=== PATIENT | male | born 1945 | race Caucasian/White ===

== ENCOUNTER 2019-05-30 23:28 | Emergency (ER) | payer MEDICARE, MEDICAID, SELFPAY ==
[2019-05-30 23:36] VITALS: BP 132/69; O2SAT 96
[2019-05-30 23:37] VITALS: BP 145/71; PULSE 65; RESP 16; TEMP 37.1; O2SAT 97; BMI 25.7
--- NOTE | 2019-05-30 23:38 | ED_ITS ---
Entered by Debo Earl, acting as scribe for Rebeca Ramírez HPI - Nausea/Vomiting/Diarrhea General: Chief complaint: Nausea/Vomiting/Diarrhea Stated complaint: N/V X3 DAYS Time Seen by Provider: 05/30/19 23:35 Source: patient and EMS Mode of arrival: EMS History of Present Illness: HPI Narrative: 73 y/o male presents to the ED with complaint of N/V for the past 3 days. MD elicited complaint: nausea and vomiting Associated nausea: Yes Associated symtoms: Reports nausea; Denies altered mental status, change in vision, chest pain, diaphoresis, dizziness, dysuria, fatigue, headache(s), malaise, palpitations or syncope Review of Systems General: Reports: other (negative unless marked) Const: Denies: fever, chills, body aches, fatigue, malaise or diaphoresis Eyes: Denies: change in vision or blurry vision ENMT: Denies: throat pain, painful swallowing, hoarseness, ear pain, ear discharge, Change in hearing or nasal discharge Card: Denies: chest pain, palpitations, irregular heart rhythm, syncope, pre- syncope, shortness of breath on exertion or shortness of breath when lying down Resp: Denies: shortness of breath, productive cough, non-productive cough, wheezing, coughing up blood or chest congestion GI: Reports: nausea and vomiting; Denies: vomiting blood, coffee grounds in vomit, constipation, cramping, blood in stool or black tarry stool : Denies: flank pain, difficulty urinating, painful urination, urinary frequency, urinary urgency, decreased urine ouput, urinary incontinence or blood in urine Musc: Denies: neck pain, back pain, extremity pain, extremity swelling, joint pain, joint swelling, joint warmth or joint stiffness Skin/Breast: Denies: rash, skin tenderness or yellow skin Neuro: Denies: headache, numbness in extremities, weakness in extremities, changes in sensation, lack of coordination, difficulty walking, dizziness, vertigo or confusion Endo: Denies: excessive thirst, tired all the time, cold intolerance, excessive sweating, flushing or hot flashes Atif/Lymph: Denies: easy bruising, easy bleeding, petechiae or enlarged lymph nodes All/Imm: Denies: hives, throat swelling, tongue swelling, facial swelling or acute wheezing PFSH ED PFSH: Medical History (Updated 05/28/19 @ 08:40 by Vikram Haley DPM) Acid reflux Diabetes mellitus Gout Surgical History (Updated 05/28/19 @ 08:40 by Vikram Haley DPM) History of appendectomy History of back surgery History of right knee surgery History of shoulder surgery History of surgery on wrist Social History Smoking and tobacco status: never smoked Alcohol intake: former Household members: none Current occupational status: disabled Physical Exam Const: COMMON NORMALS: no apparent distress, oriented x3, no limitations, healthy appearing and well nourished EXAM LIMITATIONS: no altered mental status GENERAL APPEARANCE: cooperative, well kempt and well developed ORIENTATION/CONSCIOUSNESS: Yes awake HENMT: COMMON NORMALS: normocephalic, head/scalp atraumatic, hearing grossly normal bilaterally, external ears normal, EAC's normal, external nose normal and moist oral mucous membranes HEAD & SCALP: normal to inspection, normocephalic and atraumatic FACE & SINUS: normal facial exam and face symmetric NOSE: external nose normal and nares normal EXTERNAL EAR: Yes external ears normal EXTERNAL AUDITORY CANAL: EAC's normal MOUTH: oral and palatal mucosa normal and tongue normal Eye: COMMON NORMALS: PERRL, EOMs intact bilaterally, conjunctivae normal and no scleral icterus GENERAL EYE: normal appearance of both eyes and normal light reflex CONJUNCTIVA: Yes conjunctivae normal SCLERA: sclerae normal CORNEA: Yes corneas normal PUPIL: Yes PERRL DIRECT OPHTHALMOSCOPY: Yes normal light reflex Neck/C-Spine: COMMON NORMALS: full ROM, no lymphadenopathy, supple, no meningeal signs and no JVD GENERAL: Yes normal visual inspection and Yes trachea midline CERVICAL SPINE: Yes cervical ROM normal Chest: COMMONS NORMALS: inspection of chest normal and palpation of chest normal Resp: COMMON NORMALS: normal respiratory effort, no retractions, no use of accessory muscles and clear to auscultation bilaterally EFFORT & INSPECTION: Yes able to speak in complete sentences AUSCULTATION: clear to auscultation bilaterally Cardio: COMMON NORMALS: no JVD, regular rate, regular rhythm, S1 normal heart sound, S2 normal heart sound, no gallops, no clicks, no murmurs and no rub JUGULAR VENOUS DISTENTION: no JVD RATE: regular rate RHYTHM: regular rhythm HEART SOUNDS: S1 normal and S2 normal : COMMON NORMALS: Yes no CVA tenderness BLADDER/KIDNEY EXAM: Yes no CVA tenderness Back/Pelvis: COMMON NORMALS: no CVA tenderness, thoracic and lumbar spine normal to inspection, no thoracic nor lumbar tenderness and thoraco-lumbar ROM normal Extremity: COMMON NORMALS: normal to inspection, full ROM, normal capillary refill, no joint enlargement, no clubbing, cyanosis or edema and no calf tenderness Neuro: COMMON NORMALS: oriented x3, CN's II-XII intact bilaterally, moves all extremities, no focal motor deficits and no sensory deficits noted MENINGEAL SIGNS: Yes no meningeal signs Psych: COMMON NORMALS: mental status grossly normal, thought process normal, cooperative, affect normal, speech normal and activity/motor behavior normal APPEARANCE: Yes well kempt SPEECH: Yes normal speech THOUGHT PROCESS: normal thought process Skin: COMMON NORMALS: no rashes or lesions noted, skin turgor normal, no jaundice, no petechiae and no mottling GENERAL SKIN EXAM: no rashes or lesions noted and turgor normal Course Vital Signs: Vital signs: Vital Signs Temperature 98.8 F 05/30/19 23:37 Pulse Rate 65 05/30/19 23:37 Respiratory Rate 16 05/30/19 23:37 Blood Pressure 145/71 05/30/19 23:37 Pulse Oximetry 97 05/30/19 23:37 Discharge Plan Discharge Prescriptions: No Action omeprazole 20 mg capsule,delayed release(DR/EC) PO RF: 0 prednisolone acetate 1 % drops,suspension 1 drop ophthalmic (eye) RF: 0 ibuprofen 800 mg tablet PO RF: 0 omega-3 acid ethyl esters 1 gram capsule PO RF: 0 gabapentin 300 mg capsule PO RF: 0 ranitidine HCl 300 mg tablet 300 mg PO RF: 0 docusate sodium 100 mg capsule PO RF: 0 cyanocobalamin (vitamin B-12) 1,000 mcg/mL solution 100 mcg IM RF: 0 furosemide 20 mg tablet PO RF: 0 buspirone 30 mg tablet PO RF: 0 acetaminophen-codeine 300-30 mg tablet PO RF: 0 allopurinol 300 mg tablet PO RF: 0 metformin 500 mg tablet PO RF: 0 gabapentin 600 mg tablet 300 mg PO RF: 0 aspirin 81 mg tablet,delayed release (DR/EC) PO RF: 0 spironolactone 25 mg tablet PO RF: 0 famotidine 20 mg tablet 20 mg PO RF: 0 tamsulosin 0.4 mg capsule PO RF: 0 atenolol 50 mg tablet PO RF: 0 loratadine 10 mg tablet PO RF: 0 albuterol sulfate 90 mcg/actuation HFA aerosol inhaler INHALATION RF: 0 doxycycline hyclate 100 mg capsule 100 mg PO BID Qty: 14 RF: 0 mupirocin 2 % ointment 1 applic TOPICAL BID Qty: 30 RF: 0 ondansetron HCl [Zofran] 8 mg tablet 8 mg PO Q8H PRN (Reason: nausea and vomiting) Qty: 30 RF: 0 Coding Level of Care Code ED Pilot Steam Yacht for Chg Fwd Exam Comprehensive
[2019-05-30 23:40] VITALS: BP 132/69; O2SAT 96
[2019-05-30 23:45] VITALS: BP 132/69; O2SAT 95
--- NOTE | 2019-05-30 23:49 | ED_ITS ---
HPI - General Adult General: Chief complaint: Nausea/Vomiting/Diarrhea Stated complaint: N/V X3 DAYS Time Seen by Provider: 05/30/19 23:35 Source: patient and EMS Mode of arrival: EMS History of Present Illness: HPI narrative: Patient complains every time he takes doxycycline he gets sick to his stomach. Has had some nausea and vomiting with it only after taking medication. Been taking for about 3 days for an abscess toe toe is looking better. MD complaint: Medication reaction Onset (ago): day(s) Associated symptoms: Reports nausea (With medication usage) and vomiting; Deny chest pain, dyspnea, headache(s) or rash Review of Systems Const: Denies: fever, chills or body aches Eyes: Denies: change in vision or blurry vision ENMT: Denies: throat pain or nasal congestion Card: Denies: chest pain or shortness of breath on exertion Resp: Denies: shortness of breath, productive cough or non-productive cough GI: Reports: nausea (With medication usage) and vomiting : Denies: difficulty urinating Musc: Denies: extremity pain Skin/Breast: Denies: rash Neuro: Denies: headache Psych: Denies: anxiety or depression Atif/Lymph: Denies: easy bruising PFSH ED PFSH: Medical History (Updated 05/28/19 @ 08:40 by Vikram Haley DPM) Acid reflux Diabetes mellitus Gout Surgical History (Updated 05/28/19 @ 08:40 by Vikram Haley DPM) History of appendectomy History of back surgery History of right knee surgery History of shoulder surgery History of surgery on wrist Social History Smoking and tobacco status: never smoked Alcohol intake: former Household members: none Current occupational status: disabled Physical Exam Const: COMMON NORMALS: no apparent distress, average body habitus and oriented x3 HENMT: COMMON NORMALS: normocephalic HEAD & SCALP: normal to inspection and normocephalic FACE & SINUS: normal facial exam Eye: COMMON NORMALS: conjunctivae normal GENERAL EYE: normal appearance of both eyes CONJUNCTIVA: Yes conjunctivae normal Neck/C-Spine: COMMON NORMALS: no JVD Chest: COMMONS NORMALS: inspection of chest normal Resp: COMMON NORMALS: normal respiratory effort and clear to auscultation bilaterally AUSCULTATION: clear to auscultation bilaterally Cardio: COMMON NORMALS: no JVD, regular rate and regular rhythm RATE: regular rate RHYTHM: regular rhythm GI: COMMON NORMALS: normal to inspection, nondistended, normoactive bowel sounds Extremity: COMMON NORMALS: normal to inspection and full ROM OTHER: Right toe is not appearing to be with erythema presently Neuro: COMMON NORMALS: oriented x3 Course Vital Signs: Vital signs: Vital Signs Temperature 98.8 F 05/30/19 23:37 Pulse Rate 65 05/30/19 23:37 Respiratory Rate 16 05/30/19 23:37 Blood Pressure 145/71 05/30/19 23:37 Pulse Oximetry 97 05/30/19 23:37 Discharge Plan Discharge Prescriptions: No Action omeprazole 20 mg capsule,delayed release(DR/EC) PO RF: 0 prednisolone acetate 1 % drops,suspension 1 drop ophthalmic (eye) RF: 0 ibuprofen 800 mg tablet PO RF: 0 omega-3 acid ethyl esters 1 gram capsule PO RF: 0 gabapentin 300 mg capsule PO RF: 0 ranitidine HCl 300 mg tablet 300 mg PO RF: 0 docusate sodium 100 mg capsule PO RF: 0 cyanocobalamin (vitamin B-12) 1,000 mcg/mL solution 100 mcg IM RF: 0 furosemide 20 mg tablet PO RF: 0 buspirone 30 mg tablet PO RF: 0 acetaminophen-codeine 300-30 mg tablet PO RF: 0 allopurinol 300 mg tablet PO RF: 0 metformin 500 mg tablet PO RF: 0 gabapentin 600 mg tablet 300 mg PO RF: 0 aspirin 81 mg tablet,delayed release (DR/EC) PO RF: 0 spironolactone 25 mg tablet PO RF: 0 famotidine 20 mg tablet 20 mg PO RF: 0 tamsulosin 0.4 mg capsule PO RF: 0 atenolol 50 mg tablet PO RF: 0 loratadine 10 mg tablet PO RF: 0 albuterol sulfate 90 mcg/actuation HFA aerosol inhaler INHALATION RF: 0 doxycycline hyclate 100 mg capsule 100 mg PO BID Qty: 14 RF: 0 mupirocin 2 % ointment 1 applic TOPICAL BID Qty: 30 RF: 0 ondansetron HCl [Zofran] 8 mg tablet 8 mg PO Q8H PRN (Reason: nausea and vomiting) Qty: 30 RF: 0 Coding Level of Care Code ED Veneer Jointer Returner for Chg Fwd
[2019-05-30 23:50] VITALS: BP 132/69; O2SAT 96
[2019-05-30] MEDS: ondansetron 2 mg/ML SDV 2 mL 4 MG IVP (23:51)
[2019-05-30 23:54] LABS: Eosinophils # 0.1 10^3/uL (0.0-0.8); Eosinophils % 1.3 %; Hematocrit 36.4 % (42.0-52.0); Hemoglobin 11.5 g/dL (11.7-16.6); Lymphocytes # 1.7 10^3/uL (0.8-4.8); Lymphocytes % 37.2 %; Mean Corpuscular HGB Conc 31.6 g/dL (30.0-36.0); Mean Corpuscular Hemoglobin 25.7 pg (28.0-34.0); Mean Corpuscular Volume 81.4 fL (80-94); Mean Platelet Volume 10.7 fL (7.4-10.4); Monocytes # 0.4 10^3/uL (0.2-0.9); Monocytes % 7.7 %; Neutrophils # 2.5 10^3/uL (1.8-7.7); Neutrophils % 53.6 %; Nucleated Red Blood Cells % 0 %; Platelet Count 123 10^3/cmm (130-400); Red Blood Count 4.47 10^6/uL (4.1-5.3); Red Cell Distribution Width 14.2 % (12.1-15.1); White Blood Count 4.7 10^3/uL (4.0-10.0)
[2019-05-30 23:55] VITALS: BP 132/69; O2SAT 96
[2019-05-31] VITALS (7 sets, daily range): BP systolic 132; BP diastolic 69; PULSE 72; RESP 16; O2SAT 91–97
--- NOTE | 2019-05-31 00:06 | PC.NURSE ---
Introduced self to patient and initiated vital signs. Patient presents A&O x 4. NAD, ABCs intact, MAEW and agreeable to treatment. Respirations are even and unlabored. Pt states medications taken before coming to ER are doxycycline. Pt states that the chief complaint for the ER visit today is due to abdominal pain and n/v possibly from antibiotic. Pt denies any vision disturbances or lightheadedness. Bed left in lowest position in semi-fowlers with side rails up.Reassured patient of needs and will continue to monitor.
[2019-05-31 00:17] LABS: Alanine Aminotransferase 13 U/L (0-41); Alkaline Phosphatase 79 IU/L (40-130); Aspartate Amino Transferase 16 U/L (0-40); Blood Urea Nitrogen 14 mg/dL (8-23); Calcium 9.9 mg/dL (8.5-10.5); Carbon Dioxide 26 mmol/L (22-29); Chloride 98 mmol/L (98-107); Creatinine Clr Calc Pharmacy 47.7118; Globulin 2.4 g/dL (1.3-4.6); Glucose 131 mg/dL (65-115); Lipase 39 U/L (13-60); Sodium 136 mmol/L (136-145); Total Bilirubin 1.2 mg/dL (0.15-1.2); Total Protein 6.4 g/dL (6.6-8.7)
== END 2019-05-31 00:44 | disposition home or self-care (01) ==
PROVIDERS: Emergency Medicine; Emergency Provider Nurse Practitioner Family; Family Provider Nurse Practitioner Family; PCP Nurse Practitioner Family
DX: R11.2 Nausea with vomiting, unspecified (principal); R19.7 Diarrhea, unspecified; E11.9 Type 2 diabetes mellitus without complications; Z79.84 Long term (current) use of oral hypoglycemic drugs
CPT/HCPCS: 80053; 83690; 85025; 96374; 99282; 99283; A9270; J2405

== ENCOUNTER 2019-06-01 01:32 | Emergency (ER) | payer MEDICARE, MEDICAID, SELFPAY ==
[2019-06-01 01:47] VITALS: BP 160/79; PULSE 74; RESP 16; O2SAT 96; BMI 26.4
--- NOTE | 2019-06-01 02:43 | ED_ITS ---
HPI - General Adult General: Chief complaint: General Medical Stated complaint: NAUSEA,VOMITING Time Seen by Provider: 06/01/19 02:29 History of Present Illness: HPI narrative: Patient arrived via ambulance with complaints of nausea still. Said he did not get the new antibiotic filled he did stop the old antibiotic he has not vomited he is not been running a fever chills has intermittent nausea MD complaint: nausea Onset (ago): day(s) Severity: mild Pain Consistency: intermittent Relieving factors: none Exacerbating factors: medication Associated symptoms: Reports no associated symptoms and nausea (Sporadic associated with taken doxycycline patient states he does feel better than yesterday says he is here because he was told to follow-up if he 1 significantly improved); Deny chest pain, dyspnea, headache(s), rash or vomiting Review of Systems Const: Denies: fever, chills or body aches Eyes: Denies: change in vision or blurry vision ENMT: Denies: throat pain or nasal congestion Card: Denies: chest pain or shortness of breath on exertion Resp: Denies: shortness of breath, productive cough or non-productive cough GI: Reports: nausea (Sporadic associated with taken doxycycline patient states he does feel better than yesterday says he is here because he was told to follow-up if he 1 significantly improved); Denies: abdominal pain or vomiting : Denies: difficulty urinating Musc: Denies: extremity pain Skin/Breast: Denies: rash Neuro: Denies: headache Psych: Denies: anxiety or depression Atif/Lymph: Denies: easy bruising PFS ED PFSH: Medical History (Updated 05/31/19 @ 00:23 by KRISTIE Hermosillo) Acid reflux Diabetes mellitus Gout Surgical History (Updated 05/28/19 @ 08:40 by Vikram Haley DPM) History of appendectomy History of back surgery History of right knee surgery History of shoulder surgery History of surgery on wrist Social History Smoking and tobacco status: never smoked Alcohol intake: former Household members: none Current occupational status: disabled Physical Exam Const: COMMON NORMALS: no apparent distress, average body habitus and oriented x3 HENMT: COMMON NORMALS: normocephalic HEAD & SCALP: normal to inspection and normocephalic FACE & SINUS: normal facial exam Eye: COMMON NORMALS: conjunctivae normal GENERAL EYE: normal appearance of both eyes CONJUNCTIVA: Yes conjunctivae normal Neck/C-Spine: COMMON NORMALS: no JVD Chest: COMMONS NORMALS: inspection of chest normal Resp: COMMON NORMALS: normal respiratory effort and clear to auscultation bilaterally AUSCULTATION: clear to auscultation bilaterally Cardio: COMMON NORMALS: no JVD, regular rate and regular rhythm RATE: regular rate RHYTHM: regular rhythm GI: COMMON NORMALS: normal to inspection, nondistended, normoactive bowel sounds Extremity: COMMON NORMALS: normal to inspection and full ROM Neuro: COMMON NORMALS: oriented x3 Course Vital Signs: Vital signs: Vital Signs Pulse Rate 74 06/01/19 01:47 Respiratory Rate 16 06/01/19 01:47 Blood Pressure 160/79 06/01/19 01:47 Pulse Oximetry 96 06/01/19 01:47 Discharge Plan Discharge Condition: Stable Prescriptions: No Action omeprazole 20 mg capsule,delayed release(DR/EC) PO RF: 0 prednisolone acetate 1 % drops,suspension 1 drop ophthalmic (eye) RF: 0 ibuprofen 800 mg tablet PO RF: 0 omega-3 acid ethyl esters 1 gram capsule PO RF: 0 gabapentin 300 mg capsule PO RF: 0 ranitidine HCl 300 mg tablet 300 mg PO RF: 0 docusate sodium 100 mg capsule PO RF: 0 cyanocobalamin (vitamin B-12) 1,000 mcg/mL solution 100 mcg IM RF: 0 furosemide 20 mg tablet PO RF: 0 buspirone 30 mg tablet PO RF: 0 acetaminophen-codeine 300-30 mg tablet PO RF: 0 allopurinol 300 mg tablet PO RF: 0 metformin 500 mg tablet PO RF: 0 gabapentin 600 mg tablet 300 mg PO RF: 0 aspirin 81 mg tablet,delayed release (DR/EC) PO RF: 0 spironolactone 25 mg tablet PO RF: 0 famotidine 20 mg tablet 20 mg PO RF: 0 tamsulosin 0.4 mg capsule PO RF: 0 atenolol 50 mg tablet PO RF: 0 loratadine 10 mg tablet PO RF: 0 albuterol sulfate 90 mcg/actuation HFA aerosol inhaler INHALATION RF: 0 doxycycline hyclate 100 mg capsule 100 mg PO BID Qty: 14 RF: 0 mupirocin 2 % ointment 1 applic TOPICAL BID Qty: 30 RF: 0 ondansetron HCl [Zofran] 8 mg tablet 8 mg PO Q8H PRN (Reason: nausea and vomiting) Qty: 30 RF: 0 Bactrim 400-80 mg tablet 1 tab PO BID 7 Days Qty: 14 RF: 0 Referrals: Dinora,Kaur, TOWEL HEMMER [Primary Care Provider] - Coding Level of Care Code ED Product Development Engineer for Bernadette Gamez
--- NOTE | 2019-06-01 03:02 | PC.NURSE ---
Patient dc'd home in stable condition via ambulation refusing wheelchair. Discharge papers given and explained to patient with all questions asked and answered.
== END 2019-06-01 03:05 | disposition home or self-care (01) ==
PROVIDERS: Emergency Provider Nurse Practitioner Family; Family Provider Nurse Practitioner Family; PCP Nurse Practitioner Family
DX: R11.2 Nausea with vomiting, unspecified (principal); E11.9 Type 2 diabetes mellitus without complications; Z79.84 Long term (current) use of oral hypoglycemic drugs
CPT/HCPCS: 99281; 99282

== ENCOUNTER 2021-04-09 21:15 | Emergency (ER) | payer MEDICARE, MEDICAID, SELFPAY ==
[2021-04-09 21:27] VITALS: BP 187/83; PULSE 60; RESP 16; TEMP 36.2; O2SAT 96; BMI 26.6
--- NOTE | 2021-04-09 21:29 | CTR_ITS ---
PROCEDURE INFORMATION: Exam: CT Head Without Contrast Exam date and time: 04/09/2021 9:29 PM Age: 75 years old Clinical indication: Injury or trauma; Fall; Blunt trauma (contusions or hematomas); Altered mental status/memory loss TECHNIQUE: Imaging protocol: Computed tomography of the head without contrast. Radiation optimization: All CT scans at this facility use at least one of these dose optimization techniques: automated exposure control; mA and/or kV adjustment per patient size (includes targeted exams where dose is matched to clinical indication); or iterative reconstruction. COMPARISON: CT head wo con* [id number] 02/29/2016 1:45 AM RADIATION DOSE METRICS: Total DLP (mGy-cm): 1688.23 FINDINGS: Brain: No hemorrhage. Advanced diffuse cerebral atrophy with sequela of chronic small ischemic disease. No mass effect. Cerebral ventricles: No ventriculomegaly. Paranasal sinuses: Small mucosal retention cyst in the left maxillary sinus. No fluid levels. Mastoid air cells: Visualized mastoid air cells are well aerated. Bones/joints: Unremarkable. No acute fracture. Soft tissues: Unremarkable. CT/CT head wo con* [id number] IMPRESSION: 1. No acute intracranial abnormality. 2. Advanced diffuse cerebral atrophy with sequela of chronic small vessel ischemic disease.
--- NOTE | 2021-04-09 21:31 | XRR_ITS ---
PROCEDURE INFORMATION: Exam: XR Right Knee Exam date and time: 04/09/2021 9:31 PM Age: 75 years old Clinical indication: Injury or trauma; Fall; Blunt trauma; Prior surgery; Surgery date: 6+ months; Surgery type: Right knee replacement TECHNIQUE: Imaging protocol: XR Right knee. Views: 3 views. COMPARISON: No relevant prior studies available. 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 Alignment is anatomic. There are tug enthesophytes on the distal shaft of the femur and heterotopic bone formation fusing the proximal tibia and fibula.. Normal alignment. No acute fractures. Soft tissues: Normal. XR/XR knee RT 3V* [id number] IMPRESSION: No acute bony injury.
--- NOTE | 2021-04-09 21:31 | W.ED.FALL ---
HPI - Fall General: Chief Complaint: Fall Stated Complaint: FALL FROM BED Time Seen by Provider: 04/09/21 21:21 Source: patient and EMS Mode of arrival: EMS Limitations: no limitations History of Present Illness: HPI Narrative: 75-year-old male states he fell out of bed and woke up on the floor states that he believes he did hit his head as he has a slight headache denies any neck pain he also has right knee pain he states pain is currently a 2 out of 10 denies any severe pain denies any worsening improving factors denies any vomiting. Denies any chest or abdominal pain Associated symptoms-after fall: Denies abdominal pain, chest pain or headache(s) Review of Systems Const: Denies: fever(s), chills, body aches or change in appetite Eyes: Denies: blurry vision or eye discomfort ENMT: Denies: throat pain or dental pain Card: Denies: chest pain Resp: Denies: dyspnea GI: Denies: abdominal pain, nausea, vomiting or diarrhea : Denies: dysuria Musc: Reports: extremity pain Skin/Breast: Denies: rash Neuro: Denies: headache(s) Psych: Denies: depression Atif/Lymph: Denies: easy bruising All/Imm: Denies: urticaria PFSH ED PFSH: Medical History (Updated 04/09/21 @ 22:25 by Jones Pagan MD) Acid reflux Diabetes mellitus Gout Surgical History History of appendectomy History of back surgery History of right knee surgery History of shoulder surgery History of surgery on wrist Family History Other Cancer Diabetes Social History Smoking and tobacco status: never smoked Alcohol intake: former Household members: none Current occupational status: disabled Physical Exam Const: COMMON NORMALS: no acute distress, patient oriented x3 and healthy appearing HENMT: COMMON NORMALS: normocephalic and atraumatic HEAD & SCALP: normocephalic and atraumatic Eye: COMMON NORMALS: Equal, round and reactive pupils present and EOMs intact bilaterally PUPIL: Yes Equal, round and reactive pupils present Neck/C-Spine: COMMON NORMALS: full ROM and supple Chest: COMMONS NORMALS: normal inspection of the chest and normal palpation of entire chest wall Resp: COMMON NORMALS: normal respiratory effort, No retractions, No use of accessory muscles and clear to auscultation bilaterally AUSCULTATION: clear to auscultation bilaterally Cardio: COMMON NORMALS: regular rate, regular rhythm and No murmurs present (Cardio) RATE: regular rate RHYTHM: regular rhythm GI: COMMON NORMALS: Normal to inspection, nondistended, normoactive bowel sounds present, Soft to palpation, non-tender and no masses PALPATION: Yes Soft to palpation Extremity: COMMON NORMALS: normal to inspection NARRATIVE EXTREMITY EXAM: Tenderness over right knee no obvious deformities he has full range of motion in both legs and both hips Neuro: COMMON NORMALS: patient oriented x3, moves all extremities and no focal motor deficits Psych: COMMON NORMALS: mental status grossly normal, Normal thought process present and cooperative THOUGHT PROCESS: Normal thought process present Skin: COMMON NORMALS: no rashes or lesions noted and no wounds GENERAL SKIN EXAM: no rashes or lesions noted Course Vital Signs: Vital signs: Vital Signs Temperature 97.1 F L 04/09/21 21:27 Pulse Rate 60 04/09/21 21:27 Respiratory Rate 16 04/09/21 21:27 Blood Pressure 187/83 04/09/21 21:27 Pulse Oximetry 96 04/09/21 21:27 MDM - Fall MDM Narrative: Medical decision making narrative: Patient presents with closed head injury along with knee pain after fall he has been ambulatory here in the halls with no pain head CT here is normal he had no neck pain no other injuries noted he is stable for discharge is to follow-up PCP and return if worsening. Discharge Plan Discharge Patient Disposition: Home Clinical Impression: Fall Qualifiers: Encounter type: initial encounter Qualified Code(s): W19.XXXA - Unspecified fall, initial encounter CHI (closed head injury) Qualifiers: Encounter type: initial encounter Qualified Code(s): S09.90XA - Unspecified injury of head, initial encounter Condition: Stable Prescriptions: No Action omeprazole 20 mg capsule,delayed release(DR/EC) PO RF: 0 prednisolone acetate 1 % drops,suspension 1 drop ophthalmic (eye) RF: 0 ibuprofen 800 mg tablet PO RF: 0 omega-3 acid ethyl esters 1 gram capsule PO RF: 0 gabapentin 300 mg capsule PO RF: 0 ranitidine HCl 300 mg tablet 300 mg PO RF: 0 docusate sodium 100 mg capsule PO RF: 0 cyanocobalamin (vitamin B-12) 1,000 mcg/mL solution 100 mcg IM RF: 0 furosemide 20 mg tablet PO RF: 0 buspirone 30 mg tablet PO RF: 0 acetaminophen-codeine 300-30 mg tablet PO RF: 0 allopurinol 300 mg tablet PO RF: 0 metformin 500 mg tablet PO RF: 0 gabapentin 600 mg tablet 300 mg PO RF: 0 aspirin 81 mg tablet,delayed release (DR/EC) PO RF: 0 spironolactone 25 mg tablet PO RF: 0 famotidine 20 mg tablet 20 mg PO RF: 0 tamsulosin 0.4 mg capsule PO RF: 0 atenolol 50 mg tablet PO RF: 0 loratadine 10 mg tablet PO RF: 0 albuterol sulfate 90 mcg/actuation HFA aerosol inhaler INHALATION RF: 0 doxycycline hyclate 100 mg capsule 100 mg PO BID Qty: 14 RF: 0 mupirocin 2 % ointment 1 applic TOPICAL BID Qty: 30 RF: 0 ondansetron HCl [Zofran] 8 mg tablet 8 mg PO Q8H PRN (Reason: nausea and vomiting) Qty: 30 RF: 0 Reglan 5 mg tablet 5 mg PO DAILY Qty: 10 RF: 0 Discharge Orders: Discharge ED (Routine); Ordered 04/09/21 Ordered By: Jones Pagan Referrals: Kaur,KIKO FariasN [Primary Care Provider] - 1-3 days Discharge Diet: Advance as tolerated Discharge Activity: Resume usual activity Patient Instructions: Head Injury (ED), Fall Prevention (ED) Coding Level of Care Code ED Forest Pathology Teacher for Bernadette Fwd Exam Comprehensive
[2021-04-09 22:38] VITALS: BP 154/86; PULSE 63; RESP 16; TEMP 36.2; O2SAT 97
== END 2021-04-09 22:39 | disposition home or self-care (01) ==
PROVIDERS: Emergency Provider Emergency Medicine; PCP Nurse Practitioner Family
DX: S09.90XA Unspecified injury of head, initial encounter (principal); W06.XXXA Fall from bed, initial encounter; E11.9 Type 2 diabetes mellitus without complications; M10.9 Gout, unspecified; Z79.84 Long term (current) use of oral hypoglycemic drugs; Z79.82 Long term (current) use of aspirin
CPT/HCPCS: 70450; 73562; 99283

== ENCOUNTER 2021-05-10 13:20 | Outpatient (CLI) | payer MEDICARE, MEDICAID, SELFPAY | END 2021-05-10 13:21 | disposition home or self-care (01) | LOC: WOUND 13:22 | PROVIDERS: PCP Nurse Practitioner Family; Visit Provider Emergency Medicine | DX: I96 Gangrene, not elsewhere classified (principal); E11.622 Type 2 diabetes mellitus with other skin ulcer; L97.816 Non-pressure chronic ulcer of other part of right lower leg with bone involvement without evidence of necrosis | CPT/HCPCS: 11043; 87070; 87176; 87205; 99213; A6219; A6446 ==

== ENCOUNTER 2021-05-13 13:22 | Outpatient (CLI) | payer MEDICARE, MEDICAID, SELFPAY | END 2021-05-13 13:23 | disposition home or self-care (01) | LOC: WOUND 13:23 | PROVIDERS: PCP Nurse Practitioner Family; Visit Provider Surgery | DX: I96 Gangrene, not elsewhere classified (principal); E11.622 Type 2 diabetes mellitus with other skin ulcer; L97.815 Non-pressure chronic ulcer of other part of right lower leg with muscle involvement without evidence of necrosis | CPT/HCPCS: 11043 ==

== ENCOUNTER 2021-05-20 14:13 | Outpatient (CLI) | payer MEDICARE, MEDICAID, SELFPAY | END 2021-05-20 14:14 | disposition home or self-care (01) | LOC: WOUND 14:14 | PROVIDERS: PCP Nurse Practitioner Family; Visit Provider Surgery | DX: I96 Gangrene, not elsewhere classified (principal); E11.622 Type 2 diabetes mellitus with other skin ulcer; L97.802 Non-pressure chronic ulcer of other part of unspecified lower leg with fat layer exposed | CPT/HCPCS: 99213 ==

== ENCOUNTER 2021-06-03 12:48 | Emergency (ER) | payer MEDICARE, MEDICAID, SELFPAY ==
[2021-06-03 12:56] VITALS: BP 161/75; PULSE 58; RESP 16; TEMP 36.7; O2SAT 97; BMI 24.3
--- NOTE | 2021-06-03 13:21 | W.ED.EXTPRO ---
Documented by User: TESHA Fang 06/04/21 07:29 HPI - Extremity Problem General: Chief complaint: Extremity Problem,Nontraumatic Stated complaint: INFECTION IN LEG Time Seen by Provider: 06/03/21 13:05 Source: patient Mode of arrival: ambulatory Limitations: no limitations History of Present Illness: Patient is a 75-year-old male who presents to ED today for evaluation of his right lower extremity chronic wound/ulcer. Patient states he struck the anterior portion of his right cooney approximately 3 months ago and subsequently developed an ulceration here. Patient had been following up routinely with wound care however became dissatisfied with Dr. Kemp when he recommended OR debridement of the wound. Wound care note states that patient left AMA and he has not returned to wound care since mid May. Patient tells me he has chronic redness and swelling to the lower right aspect of his leg. He states the ulcer is not worsening in any way-just does not appear to be healing. He is not having any drainage or odor. Patient states he is here in the ED wanting a prescription for more antibiotics . After speaking to patient further he states he just finished a round of antibiotics. He tells me he has been on 5 or 6 rounds of antibiotics over the past few months but none of them seem to be helping . When asked why he stopped going to wound care and why he was dissatisfied with their care he states I don't trust anyone at his hospital and I am certainly not having surgery here . Complaint: extremity swelling Radiation: none Relieving factors: nothing Exacerbating factors: nothing Associated symptoms: Reports no associated symptoms; Deny chest pain or fever(s) Review of Systems Const: Denies: fever(s), chills, body aches, fatigue or malaise Card: Denies: chest pain Resp: Denies: dyspnea GI: Denies: nausea or vomiting Musc: Reports: extremity swelling (R LE); Denies: neck pain, joint pain or joint swelling Skin/Breast: Reports: other (chronic anterior R LE ulcer) Neuro: Denies: numbness in extremities, weakness in extremities or sensory changes [facility] ED PFSH: Medical History (Updated 06/11/21 @ 00:00 by ) Acid reflux Diabetes mellitus Gout Surgical History History of appendectomy History of back surgery History of right knee surgery History of shoulder surgery History of surgery on wrist Family History Other Cancer Diabetes Social History Smoking and tobacco status: never smoked Alcohol intake: former Household members: none Current occupational status: disabled Physical Exam Const: COMMON NORMALS: no acute distress, patient oriented x3, no limitations and alert GENERAL APPEARANCE: cooperative and disheveled ORIENTATION/CONSCIOUSNESS: Yes awake, Yes oriented to person, Yes oriented to place and Yes oriented to time HENMT: COMMON NORMALS: normocephalic and atraumatic HEAD & SCALP: normocephalic and atraumatic Resp: COMMON NORMALS: normal respiratory effort and clear to auscultation bilaterally AUSCULTATION: clear to auscultation bilaterally Cardio: COMMON NORMALS: regular rate and regular rhythm RATE: regular rate RHYTHM: regular rhythm Extremity: GENERAL: Yes normal exam except as noted RIGHT LOWER EXTREMITY: Yes lower leg (see below) Right lower leg: Yes neurovascular exam (normal) OTHER: Patient has mild/mod erythema without warm and swelling to distal right lower leg that he states is chronic and hasn't changed much since March. He has a small 1.5cm x 1.5 cm ulcer to anterior lower leg with clean dressing. There is no drainage or odor. Ulcer appears stage II at this time. Clinically wound appears close to what is described by wound care documentation. Patient states wound is about the same as when he was receiving care at wound care. Neuro: COMMON NORMALS: patient oriented x3 SENSORIUM/ORIENTATION: Yes alert, Yes oriented to person, Yes oriented to place and Yes oriented to time Course Vital Signs: Vital signs: Vital Signs Temperature 98.0 F 06/03/21 12:56 Pulse Rate 58 L 06/03/21 12:56 Respiratory Rate 16 06/03/21 12:56 Blood Pressure 161/75 06/03/21 12:56 Pulse Oximetry 97 06/03/21 12:56 MDM - Extremity (Nontraumatic) Medical Decision Making Patient is a 75-year-old male here for complaints of chronic right lower extremity redness, swelling, and ulceration. Patient was receiving care at wound care however has not been back since mid May. He tells me all of his symptoms today are at his baseline. He seems convinced that more antibiotics will help his wound heal. Patient tells me he has been on 5-6 rounds of antibiotics without any improvement. Culture taken at wound care approximately a month ago was negative. At this point I do not see any signs of active infection. Patient was strongly encouraged to continue management at wound care and said that he would be agreeable to this. Case management referral was placed to get him an appointment set up. Return to ED precautions verbally given. Discharge Plan Discharge Patient Disposition: Home Clinical Impression: Chronic ulcer of right leg Condition: Stable Prescriptions: No Action omeprazole 20 mg capsule,delayed release(DR/EC) PO 0RF prednisolone acetate 1 % drops,suspension 1 drop ophthalmic (eye) 0RF ibuprofen 800 mg tablet PO 0RF omega-3 acid ethyl esters 1 gram capsule PO 0RF gabapentin 300 mg capsule PO 0RF ranitidine HCl 300 mg tablet 300 mg PO 0RF docusate sodium 100 mg capsule PO 0RF cyanocobalamin (vitamin B-12) 1,000 mcg/mL solution 100 mcg IM 0RF furosemide 20 mg tablet PO 0RF buspirone 30 mg tablet PO 0RF acetaminophen-codeine 300-30 mg tablet PO 0RF allopurinol 300 mg tablet PO 0RF metformin 500 mg tablet PO 0RF gabapentin 600 mg tablet 300 mg PO 0RF aspirin 81 mg tablet,delayed release (DR/EC) PO 0RF spironolactone 25 mg tablet PO 0RF famotidine 20 mg tablet 20 mg PO 0RF tamsulosin 0.4 mg capsule PO 0RF atenolol 50 mg tablet PO 0RF loratadine 10 mg tablet PO 0RF albuterol sulfate 90 mcg/actuation HFA aerosol inhaler INHALATION 0RF doxycycline hyclate 100 mg capsule 100 mg PO BID Qty: 14 0RF mupirocin 2 % ointment 1 applic TOPICAL BID Qty: 30 0RF ondansetron HCl [Zofran] 8 mg tablet 8 mg PO Q8H PRN (Reason: nausea and vomiting) Qty: 30 0RF Reglan 5 mg tablet 5 mg PO DAILY Qty: 10 0RF Discharge Orders: Discharge ED (Routine); Ordered 06/03/21 Ordered By: Fadumo Rodgers Referrals: Vincent,ELDA Farias [Primary Care Provider] - Activity Restrictions/Additional Instructions: As we discussed case management should contact you shortly to get you set up to see the wound care clinic for further evaluation and treatment of the right lower extremity ulcer. It is imperative that you continue seeing them so they can help your wound heal. Coding Level of Care Code ED Industrial Psychology Professor for Chg Fwd Exam Detailed Documented by User: Erwin Dalton MD 06/13/21 16:20 HPI - Extremity Problem General: Chief complaint: Extremity Problem,Nontraumatic Stated complaint: INFECTION IN LEG Time Seen by Provider: 06/03/21 13:05 PFS ED PFSH: Medical History (Updated 06/11/21 @ 00:00 by ) Acid reflux Diabetes mellitus Gout Surgical History History of appendectomy History of back surgery History of right knee surgery History of shoulder surgery History of surgery on wrist Family History Other Cancer Diabetes Social History Smoking and tobacco status: never smoked Alcohol intake: former Household members: none Current occupational status: disabled Course Vital Signs: Vital signs: Vital Signs Temperature 98.0 F 06/03/21 12:56 Pulse Rate 58 L 06/03/21 12:56 Respiratory Rate 16 06/03/21 12:56 Blood Pressure 161/75 06/03/21 12:56 Pulse Oximetry 97 06/03/21 12:56 MDM - Extremity (Nontraumatic) Medical Decision Making Patient is a 75-year-old male here for complaints of chronic right lower extremity redness, swelling, and ulceration. Patient was receiving care at wound care however has not been back since mid May. He tells me all of his symptoms today are at his baseline. He seems convinced that more antibiotics will help his wound heal. Patient tells me he has been on 5-6 rounds of antibiotics without any improvement. Culture taken at wound care approximately a month ago was negative. At this point I do not see any signs of active infection. Patient was strongly encouraged to continue management at wound care and said that he would be agreeable to this. Case management referral was placed to get him an appointment set up. Return to ED precautions verbally given. I have reviewed this documentation by TESHA Fang. Erwin Dalton MD Emergency Medicine Discharge Plan Discharge Patient Disposition: Home Clinical Impression: Chronic ulcer of right leg Condition: Stable Prescriptions: No Action omeprazole 20 mg capsule,delayed release(DR/EC) PO 0RF prednisolone acetate 1 % drops,suspension 1 drop ophthalmic (eye) 0RF ibuprofen 800 mg tablet PO 0RF omega-3 acid ethyl esters 1 gram capsule PO 0RF gabapentin 300 mg capsule PO 0RF ranitidine HCl 300 mg tablet 300 mg PO 0RF docusate sodium 100 mg capsule PO 0RF cyanocobalamin (vitamin B-12) 1,000 mcg/mL solution 100 mcg IM 0RF furosemide 20 mg tablet PO 0RF buspirone 30 mg tablet PO 0RF acetaminophen-codeine 300-30 mg tablet PO 0RF allopurinol 300 mg tablet PO 0RF metformin 500 mg tablet PO 0RF gabapentin 600 mg tablet 300 mg PO 0RF aspirin 81 mg tablet,delayed release (DR/EC) PO 0RF spironolactone 25 mg tablet PO 0RF famotidine 20 mg tablet 20 mg PO 0RF tamsulosin 0.4 mg capsule PO 0RF atenolol 50 mg tablet PO 0RF loratadine 10 mg tablet PO 0RF albuterol sulfate 90 mcg/actuation HFA aerosol inhaler INHALATION 0RF doxycycline hyclate 100 mg capsule 100 mg PO BID Qty: 14 0RF mupirocin 2 % ointment 1 applic TOPICAL BID Qty: 30 0RF ondansetron HCl [Zofran] 8 mg tablet 8 mg PO Q8H PRN (Reason: nausea and vomiting) Qty: 30 0RF Reglan 5 mg tablet 5 mg PO DAILY Qty: 10 0RF Discharge Orders: Discharge ED (Routine); Ordered 06/03/21 Ordered By: Fadumo Rodgers Referrals: Vincent,ELDA Farias [Primary Care Provider] - Activity Restrictions/Additional Instructions: As we discussed case management should contact you shortly to get you set up to see the wound care clinic for further evaluation and treatment of the right lower extremity ulcer. It is imperative that you continue seeing them so they can help your wound heal. Coding Level of Care Code ED Industrial Psychology Professor for Bernadette Gamez Exam Detailed
--- NOTE | 2021-06-14 10:38 | DCPLANNER ---
Addendum entered by Evelina Ramírez 06/24/21 12:37: Patient had a follow up appointment scheduled for 06.20.21 with Wound Care - patient did attend appointment. Original Note: international bank manager had message to schedule a follow up appointment for patient with Wound Care. international bank manager called Wound Care, spoke with Amanda, gave clinic patients information. A follow up appointment was scheduled for Sunday, June 20, 2021 at 8:[address] Johnson. international bank manager called patient and gave him the appointment information.
== END 2021-06-03 13:39 | disposition home or self-care (01) ==
PROVIDERS: Emergency Provider Physician Assistant; PCP Nurse Practitioner Family
DX: L97.919 Non-pressure chronic ulcer of unspecified part of right lower leg with unspecified severity (principal); Z79.82 Long term (current) use of aspirin; Z79.84 Long term (current) use of oral hypoglycemic drugs; E11.9 Type 2 diabetes mellitus without complications
CPT/HCPCS: 99281

== ENCOUNTER 2021-06-20 08:06 | Outpatient (CLI) | payer MEDICARE, MEDICAID, SELFPAY | END 2021-06-20 08:07 | disposition home or self-care (01) | LOC: WOUND 08:07 | PROVIDERS: PCP Nurse Practitioner Family; Visit Provider Thoracic Surgery (Cardiothoracic Vascular Surgery) | DX: E11.622 Type 2 diabetes mellitus with other skin ulcer (principal); I96 Gangrene, not elsewhere classified; L97.811 Non-pressure chronic ulcer of other part of right lower leg limited to breakdown of skin | CPT/HCPCS: 97597; 99213; A6021 ==

== ENCOUNTER → 2021-06-29 13:55 | Outpatient (BNVA) | payer MEDICARE, MEDICAID, SELFPAY | PROVIDERS: PCP Nurse Practitioner Family; Visit Provider Thoracic Surgery (Cardiothoracic Vascular Surgery) | DX: E11.622 Type 2 diabetes mellitus with other skin ulcer (principal); L97.821 Non-pressure chronic ulcer of other part of left lower leg limited to breakdown of skin | CPT/HCPCS: 99212 ==

== ENCOUNTER 2021-12-07 12:30 | Emergency (ER) | payer MEDICARE, MEDICAID, SELFPAY ==
--- NOTE | 2021-12-07 13:16 | CT_ITS ---
WS: [id number] CT HEAD TECHNIQUE: Noncontrast CT of the head obtained from the skullbase to the vertex. CLINICAL INFORMATION: migriane COMPARISON: CT April 09, 2021 DLP: 1047.[address] scans at [facility] use at least one of these dose optimization techniques: automated e xposure control; mA and/or kV adjustment per patient size (includes targeted exams where dose is matc hed to clinical indication); or iterative reconstruction. FINDINGS: No evidence of intracranial hemorrhage or mass effect. Ventricular system and basal cisterns are darby nt.Moderate small vessel changes with moderate parenchymal volume loss. Prominence of the lateral mona tricles and 3rd ventricle unchanged since April 09, 2021. Paranasal sinuses and mastoid air cells are well aerated. .Normal visualized soft tissues. CT/CT head wo con* [id number] IMPRESSION: 1. No evidence of intracranial hemorrhage or mass effect. 2. Moderate small vessel changes with moderate parenchymal volume loss. 3. Prominence of the lateral ventricles and 3rd ventricle unchanged since Hubert peraza 2021. This is also similar in appearance compared to 2016. This can be seen with normal pressure hydrocephalus in the appropriate clinical setting. 4. Overall no significant changes since April 09, 2021
[2021-12-07 13:17] VITALS: BP 188/78; PULSE 70; RESP 16; TEMP 36.7; O2SAT 96
--- NOTE | 2021-12-07 13:40 | W.ED.HA ---
HPI - Headache General: Chief Complaint: Headache Stated Complaint: migraine Time Seen by Provider: 12/07/21 13:32 History of Present Illness: Patient is a 76-year-old male comes to the ED with a migraine. Patient has a history of migraines. He says his symptoms started this morning when he woke up around 7 AM. He is also having some nausea but has not had any episodes of emesis. Endorses photophobia. He rates his migraine currently a 4 out of 10. Headache is located in the frontal region of head then radiates up to the top of his head. Current migraine is similar to his past migraines. Denies any head trauma or loss of consciousness. He has medication to take for acute migraines, but says he did not take it this morning before coming to the ED. Associated symptoms: Reports nausea; Deny chest pain, fever(s), rash or vomiting Review of Systems Const: Denies: fever(s), chills or fatigue Eyes: Reports: photophobia; Denies: change in vision or eye discomfort ENMT: Denies: throat pain, odynophagia, nasal discharge or nasal congestion Card: Denies: chest pain, palpitations, edema, swelling of feet/ankles, dyspnea on exertion or orthopnea Resp: Denies: dyspnea, productive cough or non-productive cough GI: Reports: nausea; Denies: abdominal pain, vomiting, diarrhea, constipation or hematochezia : Denies: flank pain, difficulty urinating, dysuria or hematuria Musc: Denies: neck pain, back pain or extremity swelling Skin/Breast: Denies: rash or new lesions Neuro: Reports: headache(s); Denies: numbness in extremities or weakness in extremities PFS ED PFSH: Medical History (Updated 12/07/21 @ 15:05 by TESHA Henderson) Acid reflux Diabetes mellitus Gout Surgical History History of appendectomy History of back surgery History of right knee surgery History of shoulder surgery History of surgery on wrist Family History Other Cancer Diabetes Social History Smoking and tobacco status: never smoked Alcohol intake: former Household members: none Current occupational status: disabled Physical Exam Const: COMMON NORMALS: patient oriented x3 and alert GENERAL APPEARANCE: cooperative HENMT: COMMON NORMALS: normocephalic HEAD & SCALP: normocephalic MOUTH: Normal oral and palatal mucosa present THROAT: posterior oropharynx normal and uvula midline Eye: COMMON NORMALS: Equal, round and reactive pupils present, EOMs intact bilaterally and conjunctivae normal CONJUNCTIVA: Yes conjunctivae normal PUPIL: Yes Equal, round and reactive pupils present Neck/C-Spine: COMMON NORMALS: supple GENERAL: Yes normal visual inspection Resp: COMMON NORMALS: normal respiratory effort, No retractions, No use of accessory muscles and clear to auscultation bilaterally AUSCULTATION: clear to auscultation bilaterally Cardio: COMMON NORMALS: regular rate, regular rhythm, S1 normal heart sound present, S2 normal heart sound present, No gallops present (Cardio), No clicks present (Cardio), No murmurs present (Cardio) and Peripheral pulses 2+ throughout RATE: regular rate RHYTHM: regular rhythm HEART SOUNDS: S1 normal heart sound present and S2 normal heart sound present PERIPHERAL PULSES: Peripheral pulses 2+ throughout GI: COMMON NORMALS: Normal to inspection, nondistended, normoactive bowel sounds present, Soft to palpation, non-tender and no masses PALPATION: Yes Soft to palpation : COMMON NORMALS: Yes no CVA tenderness BLADDER/KIDNEY EXAM: Yes no CVA tenderness Back/Pelvis: COMMON NORMALS: no CVA tenderness Extremity: COMMON NORMALS: normal to inspection Neuro: COMMON NORMALS: patient oriented x3, CN's II-XII intact bilaterally, moves all extremities, no focal motor deficits, no sensory deficits noted and gait normal SENSORIUM/ORIENTATION: Yes alert SPEECH: speech normal GAIT: Yes Normal gait present MOTOR EXAM: 5/5 motor strength present throughout Skin: GENERAL SKIN EXAM: dry skin Course Vital Signs: Vital signs: Vital Signs Temperature 98.1 F 12/07/21 13:17 Pulse Rate 64 12/07/21 14:47 Respiratory Rate 16 12/07/21 14:47 Blood Pressure 193/70 12/07/21 14:47 Pulse Oximetry 98 12/07/21 14:47 Oxygen Delivery Me thod 12/07/21 14:47 MDM - Headache Medical Decision Making Patient is a 76-year-old male comes to the ED with a migraine. Patient has a history of migraines. He says his symptoms started this morning when he woke up around 7 AM. He is also having some nausea but has not had any episodes of emesis. Endorses photophobia. Denies any head trauma or loss of consciousness preceding symptoms. Vitals are stable. Exam is benign and neuro exam shows no deficits. Head CT shows no acute findings. Patient was given IV migraine cocktail and his headache improved. Patient diagnosed with migraine and was discharged home and told to follow-up with his PCP within the next week for reevaluation. Return to ED precautions given. Patient understood and agreed with plan. Lab Data Radiology Impressions Head CT 12/07/21 13:16 IMPRESSION: 1. No evidence of intracranial hemorrhage or mass effect. 2. Moderate small vessel changes with moderate parenchymal volume loss. 3. Prominence of the lateral ventricles and 3rd ventricle unchanged since April 09, 2021. This is also similar in appearance compared to 2016. This can be seen with normal pressure hydrocephalus in the appropriate clinical setting. 4. Overall no significant changes since April 09, 2021 Discharge Plan Discharge Patient Disposition: Home Clinical Impression: Migraine Qualifiers: Migraine type: without aura Status migrainosus presence: without status migrainosus Intractability: not intractable Qualified Code(s): G43.009 - Migraine without aura, not intractable, without status migrainosus Condition: Stable Prescriptions: No Action omeprazole 20 mg capsule,delayed release(DR/EC) PO prednisolone acetate 1 % drops,suspension 1 drop ophthalmic (eye) ibuprofen 800 mg tablet PO omega-3 acid ethyl esters 1 gram capsule PO gabapentin 300 mg capsule PO ranitidine HCl 300 mg tablet 300 mg PO docusate sodium 100 mg capsule PO cyanocobalamin (vitamin B-12) 1,000 mcg/mL solution 100 mcg IM furosemide 20 mg tablet PO buspirone 30 mg tablet PO acetaminophen-codeine 300-30 mg tablet PO allopurinol 300 mg tablet PO metformin 500 mg tablet PO gabapentin 600 mg tablet 300 mg PO aspirin 81 mg tablet,delayed release (DR/EC) PO spironolactone 25 mg tablet PO famotidine 20 mg tablet 20 mg PO tamsulosin 0.4 mg capsule PO atenolol 50 mg tablet PO loratadine 10 mg tablet PO albuterol sulfate 90 mcg/actuation HFA aerosol inhaler INHALATION doxycycline hyclate 100 mg capsule 100 mg PO BID Qty: 14 0RF mupirocin 2 % ointment 1 applic TOPICAL BID Qty: 30 0RF ondansetron HCl [Zofran] 8 mg tablet 8 mg PO Q8H PRN (Reason: nausea and vomiting) Qty: 30 0RF Reglan 5 mg tablet 5 mg PO DAILY Qty: 10 0RF Discharge Orders: Discharge ED (Routine); Ordered 12/07/21 Ordered By: Carlos Umanzor Referrals: Dinora Kaur APN [Primary Care Provider] - Discharge Diet: Regular Discharge Activity: Increase activity as tolerated Patient Instructions: Migraine Headache (ED) Activity Restrictions/Additional Instructions: Follow-up with medical provider as directed in the next 5 to 7 days for reevaluation. Continue taking all home medications as prescribed. Return to the ER or your medical provider if condition worsens. Please read and understand discharge instructions. Thank you for choosing [facility] for your healthcare needs today. Please realize this is an emergency room and that we are providing you with a medical screening exam and this may not be complete and all inclusive of all the testing and or work up that you may need to determine your ailment or severity of your illness. It is very important that you follow up as instructed or that you return to the Emergency Department should you have concerns or if your condition changes or worsens in any way. Coding Level of Care Code ED Equipment Oiler for Bernadette Gamez Exam Comprehensive
[2021-12-07] MEDS: ketorolac 30 mg/mL INJ IVP (14:01)
[2021-12-07] MEDS: dexamethasone 4 mg/mL INJ 8 MG IVP (14:03)
[2021-12-07] MEDS: metoclopramide 5 mg/mL SDV 2 mL 10 MG IVP (14:04)
[2021-12-07] MEDS: diphenhydrAMINE 50 mg/mL SDV 1mL 25 MG IVP (14:04)
[2021-12-07] MEDS: sodium chloride 0.9% 250 ML IV (14:04)
[2021-12-07 14:47] VITALS: BP 193/70; PULSE 64; RESP 16; O2SAT 98
== END 2021-12-07 15:22 | disposition home or self-care (01) ==
PROVIDERS: Emergency Provider Physician Assistant; PCP Nurse Practitioner Family
DX: G43.009 Migraine without aura, not intractable, without status migrainosus (principal); Z79.84 Long term (current) use of oral hypoglycemic drugs; Z79.82 Long term (current) use of aspirin; E11.9 Type 2 diabetes mellitus without complications
CPT/HCPCS: 70450; 96361; 96374; 96375; 99285; J1100; J1200; J1885; J2765; J7050

== ENCOUNTER 2022-08-11 23:55 | Emergency (ER) | payer MEDICARE, MEDICAID, SELFPAY ==
[2022-08-11 23:55] VITALS: BP 196/86; PULSE 64; RESP 16; TEMP 36.7; O2SAT 97; BMI 22.8
[2022-08-11 23:58] VITALS: BP 196/86; PULSE 64; RESP 14; O2SAT 98
--- NOTE | 2022-08-12 00:20 | CTR_ITS ---
PROCEDURE INFORMATION: Exam: CT Head Without Contrast Exam date and time: 08/12/2022 12:26 AM Age: 76 years old Clinical indication: Pain; Headache; Patient HX: C/O migraine. Hypertensive on monitor. ; Additional info: Hypertensive urgency with headache TECHNIQUE: Imaging protocol: Computed tomography of the head without contrast. Radiation optimization: All CT scans at this facility use at least one of these dose optimization techniques: automated exposure control; mA and/or kV adjustment per patient size (includes targeted exams where dose is matched to clinical indication); or iterative reconstruction. REPORTING DATA: Count of CT and Cardiac NM exams in prior 12 months: This patient has received [address] and 0 known cardiac nuclear medicine studies in the 12 months prior to the current study. COMPARISON: CT head wo con* [id number] 12/07/2021 2:16 PM RADIATION DOSE METRICS: Total DLP (mGy-cm): 1066.18 FINDINGS: Brain: There is marked cerebral atrophy. There is moderate diffuse heterogeneity of the white matter attenuation, consistent with chronic white matter ischemic changes. Negative for intracranial hemorrhage. Negative for mass effect on the brain. Negative for midline shift of brain. Clark matter and white matter interfaces are preserved. Cerebral ventricles: No ventriculomegaly. Paranasal sinuses: Visualized sinuses are unremarkable. No fluid levels. Mastoid air cells: Visualized mastoid air cells are well aerated. Bones/joints: Unremarkable. No acute fracture. Soft tissues: Unremarkable. CT/CT head wo con* [id number] IMPRESSION: Negative for acute intracranial pathology.
--- NOTE | 2022-08-12 00:21 | ED_ITS ---
Documented by User: FLACO Henderson 08/12/22 02:58 HPI - General Adult General: Chief complaint: Headache Stated complaint: PETERS Time Seen by Provider: 08/12/22 00:00 History of Present Illness: Patient is a 76-year-old male who comes to the ED with elevated blood pressures and headache. Patient has a history of hypertension, diabetes. Patient states that he is currently on multiple blood pressure medications. For the past week he said he has been having elevated blood pressures with a systolic over 200. He has been taking his blood pressure medications as prescribed and it has not been helping his blood pressures. This morning he woke up and he was having a headache. The headache is located in the front of his head and he rates it currently a 5 out of 10. Denies any neurological symptoms such as numbness/tingling or weakness to 1 side of his body or face, vision changes. Denies chest pain or shortness of breath. Associated symptoms: Reports headache(s); Deny chest pain, dyspnea, nausea, rash, palpitations or vomiting Review of Systems Const: Denies: fever(s), chills or fatigue Eyes: Denies: change in vision or eye discomfort ENMT: Denies: throat pain, odynophagia, nasal discharge or nasal congestion Card: Denies: chest pain, palpitations, edema, swelling of feet/ankles, dyspnea on exertion or orthopnea Resp: Denies: dyspnea, productive cough or non-productive cough GI: Denies: abdominal pain, nausea, vomiting, diarrhea, constipation or hematochezia : Denies: flank pain, difficulty urinating, dysuria or hematuria Musc: Denies: neck pain, back pain or extremity swelling Skin/Breast: Denies: rash or new lesions Neuro: Reports: headache(s); Denies: numbness in extremities or weakness in extremities PFS ED PFSH: Medical History (Updated 08/12/22 @ 04:29 by Harvey Reyna DO) Acid reflux Diabetes mellitus Gout Surgical History History of appendectomy History of back surgery History of right knee surgery History of shoulder surgery History of surgery on wrist Family History Other Cancer Diabetes Social History Smoking and tobacco status: never smoked Alcohol intake: former Household members: none Current occupational status: disabled Physical Exam Const: COMMON NORMALS: patient oriented x3 HENMT: COMMON NORMALS: normocephalic HEAD & SCALP: normocephalic MOUTH: Normal oral and palatal mucosa present THROAT: posterior oropharynx normal and uvula midline Eye: COMMON NORMALS: Equal, round and reactive pupils present and EOMs intact bilaterally GENERAL EYE: appearance normal, both eyes and all related structures PUPIL: Yes Equal, round and reactive pupils present Neck/C-Spine: COMMON NORMALS: supple GENERAL: Yes normal visual inspection Lymph: LYMPHATIC: no lymphadenopathy noted Resp: COMMON NORMALS: normal respiratory effort, No retractions, No use of accessory muscles and clear to auscultation bilaterally AUSCULTATION: clear to auscultation bilaterally Cardio: COMMON NORMALS: regular rate, regular rhythm, S1 normal heart sound present, S2 normal heart sound present, No gallops present (Cardio), No clicks present (Cardio), No murmurs present (Cardio) and Peripheral pulses 2+ throughout RATE: regular rate RHYTHM: regular rhythm HEART SOUNDS: S1 normal heart sound present and S2 normal heart sound present PERIPHERAL PULSES: Peripheral pulses 2+ throughout GI: COMMON NORMALS: Normal to inspection, nondistended, normoactive bowel sounds present, Soft to palpation, non-tender and no masses PALPATION: Yes Soft to palpation : COMMON NORMALS: Yes no CVA tenderness BLADDER/KIDNEY EXAM: Yes no CVA tenderness Back/Pelvis: COMMON NORMALS: no CVA tenderness Extremity: GENERAL: Yes normal exam except as noted Neuro: COMMON NORMALS: patient oriented x3, CN's II-XII intact bilaterally, moves all extremities, no focal motor deficits and no sensory deficits noted SENSORY EXAM: Yes extremities (intact) MOTOR EXAM: 5/5 motor strength present throughout Skin: COMMON NORMALS: no rashes or lesions noted GENERAL SKIN EXAM: no rashes or lesions noted and dry skin Course Reevaluation(s): Reevaluation #1: I went in to check on patient after he received nausea med and hydralazine. Patient said about 5 minutes before he came in he started feeling a pressure type pain in the left upper chest and shoulder. Chest pain was not reproducible with palpitation. I told him I would order an EKG and check some other labs on patient now that he is just developing this chest pain. Patient understood and agreed with plan. Time: 02:12 Vital Signs: Vital signs: Vital Signs Temperature 98.1 F 08/11/22 23:55 Pulse Rate 78 08/12/22 04:00 Respiratory Rate 14 08/12/22 04:00 Blood Pressure 144/85 08/12/22 04:00 Pulse Oximetry 96 08/12/22 04:00 Oxygen Delivery Me thod Room Air 08/12/22 04:00 MDM - General Adult Medical Decision Making Patient is a 76-year-old male who comes to the ED with elevated blood pressures and headache. Patient states that he is currently on multiple blood pressure medications. For the past week he said he has been having elevated blood pressures with a systolic over 200. He has been taking his blood pressure medications as prescribed and it has not been helping his blood pressures. This morning he woke up and he was having a headache. The headache is located in the front of his head and he rates it currently a 5 out of 10. Denies any neurological symptoms such as numbness/tingling or weakness to 1 side of his body or face, vision changes. Denies chest pain or shortness of breath. Flaco boyd's blood pressure was 196/86. Neuro exam showed no deficits. Rest of exam was benign. Head CT showed no acute findings. He was given a dose of Toradol to treat his headache. He was also given a dose of hydralazine and nausea meds because he started feeling a little nauseous. I went to check on patient and around 0212 and he started complaining of having some left upper chest pain and shoulder pain that he describes as a pressure. He said the symptoms started about 5 minutes before I came in to see patient. I then ordered an EKG, troponin and other labs for further evaluation of patient. He was put on cardiac monitoring. Patient case was signed over to Dr. Reyna at the end of my shift. He will be managing patient care and disposition. Lab Data I reviewed the patient's lab results. 08/12/22 02:20 08/12/22 02:[address] 08/12/22 00:20 IMPRESSION: Negative for acute intracranial pathology. Chest X-Ray 08/12/22 02:14 IMPRESSION: No acute findings. Laboratory Results WBC 6.7 10^3/uL (4.0-10.0) 08/12/22 02:20 RBC 5.91 10^6/uL (4.1-5.3) H 08/12/22 02:20 Hgb 16.2 g/dL (11.7-16.6) 08/12/22 02:20 Hct 47.9 % (42.0-52.0) 08/12/22 02:20 MCV 81.0 fl (80-94) 08/12/22 02:20 MCH 27.4 pg (28.0-34.0) L 08/12/22 02:20 MCHC 33.8 g/dL (30.0-36.0) 08/12/22 02:20 RDW 13.7 % (12.1-15.1) 08/12/22 02:20 Plt Count 136 10^3/cmm (130-400) 08/12/22 02:20 MPV 10.3 fL (7.4-10.4) 08/12/22 02:20 Neut % (Auto) 53.5 % 08/12/22 02:20 Lymph % (Auto) 36.8 % 08/12/22 02:20 [place] % (Auto) 8.5 % 08/12/22 02:20 Eos % (Auto) 0.7 % 08/12/22 02:20 Baso % (Auto) 0.1 % 08/12/22 02:20 Neut # (Auto) 3.58 10^3/uL (1.8-7.7) 08/12/22 02:20 Lymph # (Auto) 2.5 10^3/uL (0.8-4.8) 08/12/22 02:20 [place] # (Auto) 0.6 10^3/uL (0.2-0.9) 08/12/22 02:20 Eos # (Auto) 0.1 10^3/uL (0.0-0.8) 08/12/22 02:20 Baso # (Auto) 0.0 10^3/uL (0.0-0.1) 08/12/22 02:20 Nucleated RBC % (auto) 0 % 08/12/22 02:20 Nucleated RBCs # 0.0 /100WBC 08/12/22 02:20 Sodium 137 mmol/L (136-145) 08/12/22 02:20 Potassium 4.2 mmol/L (3.5-5.1) 08/12/22 02:20 Chloride 98 mmol/L (98-107) 08/12/22 02:20 Carbon Dioxide 26 mmol/L (22-29) 08/12/22 02:20 Anion Gap 17.2 (5-19) 08/12/22 02:20 BUN 16 mg/dL (8-23) 08/12/22 02:20 Creatinine 1.0 mg/dL (0.7-1.2) 08/12/22 02:20 GFR Calculation Not Reportable 08/12/22 02:20 Glucose 100 mg/dL (65-115) 08/12/22 02:20 Calculated Osmolality 285 mOsm/kg (285-295) 08/12/22 02:20 Calcium 9.6 mg/dL (8.5-10.5) 08/12/22 02:20 Total Bilirubin 1.3 mg/dL (0.15-1.2) H 08/12/22 02:20 AST 11 U/L (0-40) 08/12/22 02:20 ALT 9 U/L (0-41) 08/12/22 02:20 Alkaline Phosphatase 85 U/L (40-130) 08/12/22 02:20 Troponin T Baseline 19 ng/L (0-15) H 08/12/22 02:20 Troponin T 120 Minute 20.67 ng/L (0-15) H 08/12/22 03:55 Delta Troponin T 1.67 ABS# (0-10) 08/12/22 03:55 NT-Pro-B Natriuret Pep 233 pg/mL (0-450) 08/12/22 02:20 Total Protein 6.8 g/dL (6.6-8.7) 08/12/22 02:20 Albumin 4.5 g/dL (3.5-5.2) 08/12/22 02:20 Globulin 2.3 g/dL (1.3-4.6) 08/12/22 02:20 Discharge Plan Discharge Patient Disposition: Home Clinical Impression: Hypertensive urgency Condition: Stable Prescriptions: New amlodipine 10 mg tablet 10 mg PO DAILY Qty: 30 0RF No Action omeprazole 20 mg capsule,delayed release(DR/EC) PO prednisolone acetate 1 % drops,suspension 1 drop ophthalmic (eye) ibuprofen 800 mg tablet PO omega-3 acid ethyl esters 1 gram capsule PO gabapentin 300 mg capsule PO ranitidine HCl 300 mg tablet 300 mg PO docusate sodium 100 mg capsule PO cyanocobalamin (vitamin B-12) 1,000 mcg/mL solution 100 mcg IM furosemide 20 mg tablet PO buspirone 30 mg tablet PO acetaminophen-codeine 300-30 mg tablet PO allopurinol 300 mg tablet PO metformin 500 mg tablet PO gabapentin 600 mg tablet 300 mg PO aspirin 81 mg tablet,delayed release (DR/EC) PO spironolactone 25 mg tablet PO famotidine 20 mg tablet 20 mg PO tamsulosin 0.4 mg capsule PO atenolol 50 mg tablet PO loratadine 10 mg tablet PO albuterol sulfate 90 mcg/actuation HFA aerosol inhaler INHALATION doxycycline hyclate 100 mg capsule 100 mg PO BID Qty: 14 0RF mupirocin 2 % ointment 1 applic TOPICAL BID Qty: 30 0RF ondansetron HCl [Zofran] 8 mg tablet 8 mg PO Q8H PRN (Reason: nausea and vomiting) Qty: 30 0RF Reglan 5 mg tablet 5 mg PO DAILY Qty: 10 0RF Discharge Orders: Discharge ED (Routine); Ordered 08/12/22 Ordered By: Harvey Reyna Referrals: Dinora Kaur APN [Primary Care Provider] - 1-3 days Discharge Diet: Advance as tolerated Patient Instructions: Hypertension (ED), Opioid Safety, Pain Management Activity Restrictions/Additional Instructions: Check your blood pressure twice daily. If numbers are staying above 150/90, you may take the prescribed medication on top of your normal medications. Return for return of or worsening chest discomfort, worsening headache despite treatment, any other concerning symptoms. Call your doctor on Sunday. Coding Level of Care Code ED Manager Equipment for Chg Fwd Documented by User: Harvey Reyna DO 08/12/22 04:34 HPI - General Adult General: Chief complaint: Headache Stated complaint: PETERS Time Seen by Provider: 08/12/22 00:00 [facility] ED [facility]: Medical History (Updated 08/12/22 @ 04:29 by Harvey Reyna DO) Acid reflux Diabetes mellitus Gout Surgical History History of appendectomy History of back surgery History of right knee surgery History of shoulder surgery History of surgery on wrist Family History Other Cancer Diabetes Social History Smoking and tobacco status: never smoked Alcohol intake: former Household members: none Current occupational status: disabled Course Vital Signs: Vital signs: Vital Signs Temperature 98.1 F 08/11/22 23:55 Pulse Rate 78 08/12/22 04:00 Respiratory Rate 14 08/12/22 04:00 Blood Pressure 144/85 08/12/22 04:00 Pulse Oximetry 96 08/12/22 04:00 Oxygen Delivery Me thod Room Air 08/12/22 04:00 [facility] - General Adult Medical Decision Making Patient is a 76-year-old male who comes to the ED with elevated blood pressures and headache. Patient states that he is currently on multiple blood pressure medications. For the past week he said he has been having elevated blood pressures with a systolic over 200. He has been taking his blood pressure medications as prescribed and it has not been helping his blood pressures. This morning he woke up and he was having a headache. The headache is located in the front of his head and he rates it currently a 5 out of 10. Denies any neurological symptoms such as numbness/tingling or weakness to 1 side of his body or face, vision changes. Denies chest pain or shortness of breath. Patient's blood pressure was 196/86. Neuro exam showed no deficits. Rest of exam was benign. Head CT showed no acute findings. He was given a dose of Toradol to treat his headache. He was also given a dose of hydralazine and nausea meds because he started feeling a little nauseous. I went to check on patient and around 0212 and he started complaining of having some left upper chest pain and shoulder pain that he describes as a pressure. He said the symptoms started about 5 minutes before I came in to see patient. I then ordered an EKG, troponin and other labs for further evaluation of patient. He was put on cardiac monitoring. Patient case was signed over to Dr. Reyna at the end of my shift. He will be managing patient care and disposition. This patient was originally seen by Mr. Erna PA-C.? I agree with his history, evaluation, and treatment. Patient complaining of chest pressure after hypertensive episode. Currently blood pressure 144/85, heart rate 80, sa turations 98% with respirations of 20. Second EKG shows a sinus rhythm in the right bundle branch block, no ST changes. Rate is 75. Second troponin did not rise significantly. Because of this, he will be allowed home. Lab Data 08/12/22 02:20 08/12/22 02:[address] 08/12/22 00:20 IMPRESSION: Negative for acute intracranial pathology. Chest X-Ray 08/12/22 02:14 IMPRESSION: No acute findings. Laboratory Results WBC 6.7 10^3/uL (4.0-10.0) 08/12/22 02:20 RBC 5.91 10^6/uL (4.1-5.3) H 08/12/22 02:20 Hgb 16.2 g/dL (11.7-16.6) 08/12/22 02:20 Hct 47.9 % (42.0-52.0) 08/12/22 02:20 MCV 81.0 fl (80-94) 08/12/22 02:20 MCH 27.4 pg (28.0-34.0) L 08/12/22 02:20 MCHC 33.8 g/dL (30.0-36.0) 08/12/22 02:20 RDW 13.7 % (12.1-15.1) 08/12/22 02:20 Plt Count 136 10^3/cmm (130-400) 08/12/22 02:20 MPV 10.3 fL (7.4-10.4) 08/12/22 02:20 Neut % (Auto) 53.5 % 08/12/22 02:20 Lymph % (Auto) 36.8 % 08/12/22 02:20 [place] % (Auto) 8.5 % 08/12/22 02:20 Eos % (Auto) 0.7 % 08/12/22 02:20 Baso % (Auto) 0.1 % 08/12/22 02:20 Neut # (Auto) 3.58 10^3/uL (1.8-7.7) 08/12/22 02:20 Lymph # (Auto) 2.5 10^3/uL (0.8-4.8) 08/12/22 02:20 [place] # (Auto) 0.6 10^3/uL (0.2-0.9) 08/12/22 02:20 Eos # (Auto) 0.1 10^3/uL (0.0-0.8) 08/12/22 02:20 Baso # (Auto) 0.0 10^3/uL (0.0-0.1) 08/12/22 02:20 Nucleated RBC % (auto) 0 % 08/12/22 02:20 Nucleated RBCs # 0.0 /100WBC 08/12/22 02:20 Sodium 137 mmol/L (136-145) 08/12/22 02:20 Potassium 4.2 mmol/L (3.5-5.1) 08/12/22 02:20 Chloride 98 mmol/L (98-107) 08/12/22 02:20 Carbon Dioxide 26 mmol/L (22-29) 08/12/22 02:20 Anion Gap 17.2 (5-19) 08/12/22 02:20 BUN 16 mg/dL (8-23) 08/12/22 02:20 Creatinine 1.0 mg/dL (0.7-1.2) 08/12/22 02:20 GFR Calculation Not Reportable 08/12/22 02:20 Glucose 100 mg/dL (65-115) 08/12/22 02:20 Calculated Osmolality 285 mOsm/kg (285-295) 08/12/22 02:20 Calcium 9.6 mg/dL (8.5-10.5) 08/12/22 02:20 Total Bilirubin 1.3 mg/dL (0.15-1.2) H 08/12/22 02:20 AST 11 U/L (0-40) 08/12/22 02:20 ALT 9 U/L (0-41) 08/12/22 02:20 Alkaline Phosphatase 85 U/L (40-130) 08/12/22 02:20 Troponin T Baseline 19 ng/L (0-15) H 08/12/22 02:20 Troponin T 120 Minute 20.67 ng/L (0-15) H 08/12/22 03:55 Delta Troponin T 1.67 ABS# (0-10) 08/12/22 03:55 NT-Pro-B Natriuret Pep 233 pg/mL (0-450) 08/12/22 02:20 Total Protein 6.8 g/dL (6.6-8.7) 08/12/22 02:20 Albumin 4.5 g/dL (3.5-5.2) 08/12/22 02:20 Globulin 2.3 g/dL (1.3-4.6) 08/12/22 02:20 Discharge Plan Discharge Patient Disposition: Home Clinical Impression: Hypertensive urgency Condition: Stable Prescriptions: New amlodipine 10 mg tablet 10 mg PO DAILY Qty: 30 0RF No Action omeprazole 20 mg capsule,delayed release(DR/EC) PO prednisolone acetate 1 % drops,suspension 1 drop ophthalmic (eye) ibuprofen 800 mg tablet PO omega-3 acid ethyl esters 1 gram capsule PO gabapentin 300 mg capsule PO ranitidine HCl 300 mg tablet 300 mg PO docusate sodium 100 mg capsule PO cyanocobalamin (vitamin B-12) 1,000 mcg/mL solution 100 mcg IM furosemide 20 mg tablet PO buspirone 30 mg tablet PO acetaminophen-codeine 300-30 mg tablet PO allopurinol 300 mg tablet PO metformin 500 mg tablet PO gabapentin 600 mg tablet 300 mg PO aspirin 81 mg tablet,delayed release (DR/EC) PO spironolactone 25 mg tablet PO famotidine 20 mg tablet 20 mg PO tamsulosin 0.4 mg capsule PO atenolol 50 mg tablet PO loratadine 10 mg tablet PO albuterol sulfate 90 mcg/actuation HFA aerosol inhaler INHALATION doxycycline hyclate 100 mg capsule 100 mg PO BID Qty: 14 0RF mupirocin 2 % ointment 1 applic TOPICAL BID Qty: 30 0RF ondansetron HCl [Zofran] 8 mg tablet 8 mg PO Q8H PRN (Reason: nausea and vomiting) Qty: 30 0RF Reglan 5 mg tablet 5 mg PO DAILY Qty: 10 0RF Discharge Orders: Discharge ED (Routine); Ordered 08/12/22 Ordered By: Harvey Reyna Referrals: Kaur,Dinora SIGN POSTER [Primary Care Provider] - 1-3 days Discharge Diet: Advance as tolerated Patient Instructions: Hypertension (ED), Opioid Safety, Pain Management Activity Restrictions/Additional Instructions: Check your blood pressure twice daily. If numbers are staying above 150/90, you may take the prescribed medication on top of your normal medications. Return for return of or worsening chest discomfort, worsening headache despite treatment, any other concerning symptoms. Call your doctor on Sunday. Coding Level of Care Code ED Manager Equipment for Bernadette Gamez
[2022-08-12] MEDS: ketorolac 30 mg/mL INJ 15 MG IVP (01:36)
[2022-08-12] MEDS: hyDRALAzine 20 mg/mL INJ 1 mL IVP (01:37)
[2022-08-12] MEDS: ondansetron 2 mg/ML SDV 2 mL 4 MG IVP ×2 (01:44→03:33)
--- NOTE | 2022-08-12 01:56 | PC.NURSE ---
Tingling in hand- @ 0152 pt hit call light and reports that he has tingling down the left arm and in the face. [facility] 0. Erna notified.
--- NOTE | 2022-08-12 02:14 | XRR_ITS ---
PROCEDURE INFORMATION: Exam: XR Chest Exam date and time: 08/12/2022 2:25 AM Age: 76 years old Clinical indication: Chest pressure; Patient HX: C/O chest pain; Additional info: Cp TECHNIQUE: Imaging protocol: Radiologic exam of the chest. Views: 1 view. COMPARISON: CR XR chest 1V [id number] 03/14/2019 4:00 PM FINDINGS: Lungs: Unremarkable. No consolidation. Pleural spaces: Unremarkable. No pleural effusion. No pneumothorax. Heart/Mediastinum: Unremarkable. No cardiomegaly. Bones/joints: Unremarkable. XR/XR chest 1V portable [id number] IMPRESSION: No acute findings.
--- NOTE | 2022-08-12 02:21 | ECG_ITS ---
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 Measurements Intervals [place] Rate: 84 P: 32 NH: 166 QRS: 6 QRSD: 133 T: -14 QT: 383 QTc: 453 Interpretive Statements SINUS RHYTHM RIGHT BUNDLE BRANCH BLOCK [120+ ms QRS DURATION, UPRIGHT V1, 40+ ms S IN I/aVL/V4/V5/V6] Compared to ECG 08/17/2018 20:04:46 Sinus bradycardia no longer present Electronically Signed On 08-12-2022 19:19:50 CDT by Willis Ramon M.D. [email or web address]/store/[id number] maurice
[2022-08-12 02:28] LABS: Basophils % 0.1 %; Eosinophils # 0.1 10^3/uL (0.0-0.8); Eosinophils % 0.7 %; Hematocrit 47.9 % (42.0-52.0); Hemoglobin 16.2 g/dL (11.7-16.6); Lymphocytes # 2.5 10^3/uL (0.8-4.8); Lymphocytes % 36.8 %; Mean Corpuscular HGB Conc 33.8 g/dL (30.0-36.0); Mean Corpuscular Hemoglobin 27.4 pg (28.0-34.0); Mean Platelet Volume 10.3 fL (7.4-10.4); Monocytes # 0.6 10^3/uL (0.2-0.9); Monocytes % 8.5 %; Neutrophils # 3.58 10^3/uL (1.8-7.7); Neutrophils % 53.5 %; Nucleated Red Blood Cells % 0 %; Platelet Count 136 10^3/cmm (130-400); Red Blood Count 5.91 10^6/uL (4.1-5.3); Red Cell Distribution Width 13.7 % (12.1-15.1); White Blood Count 6.7 10^3/uL (4.0-10.0)
[2022-08-12 02:31] VITALS: BP 164/98; PULSE 85; RESP 12; O2SAT 98
[2022-08-12 02:41] LABS: Troponin(5th) Baseline 19 ng/L (0-15)
[2022-08-12 02:50] LABS: Alanine Aminotransferase 9 U/L (0-41); Albumin Level 4.5 g/dL (3.5-5.2); Alkaline Phosphatase 85 U/L (40-130); Anion Gap 17.2 (5-19); Aspartate Amino Transferase 11 U/L (0-40); Blood Urea Nitrogen 16 mg/dL (8-23); Calcium 9.6 mg/dL (8.5-10.5); Carbon Dioxide 26 mmol/L (22-29); Chloride 98 mmol/L (98-107); Globulin 2.3 g/dL (1.3-4.6); Glucose 100 mg/dL (65-115); NT Pro B Type Natriuretic Pept 233 pg/mL (0-450); Osmolality Calculated 285 mOsm/kg (285-295); Potassium 4.2 mmol/L (3.5-5.1); Sodium 137 mmol/L (136-145); Total Bilirubin 1.3 mg/dL (0.15-1.2); Total Protein 6.8 g/dL (6.6-8.7)
[2022-08-12] MEDS: amlodipine 10 mg Tablet PO (03:31)
[2022-08-12] MEDS: enalaprilat 1.25 mg/mL Inj IVP (03:31)
[2022-08-12] MEDS: morphine 4 mg/mL SDV 1 mL IVP (03:35)
[2022-08-12 04:00] VITALS: BP 144/85; PULSE 78; RESP 14; O2SAT 96
--- NOTE | 2022-08-12 04:15 | ECG_ITS ---
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 Measurements Intervals [place] Rate: 73 P: 19 NM: 148 QRS: 20 QRSD: 124 T: -7 QT: 393 QTc: 435 Interpretive Statements SINUS RHYTHM RIGHT BUNDLE BRANCH BLOCK [120+ ms QRS DURATION, UPRIGHT V1, 40+ ms S IN I/aVL/V4/V5/V6] Compared to ECG 08/12/2022 02:21:01 No significant changes Electronically Signed On 08-12-2022 19:28:24 CDT by Willis Ramon M.D. [id number]
[2022-08-12 04:16] LABS: Troponin 5 2HR 20.67 ng/L (0-15)
[2022-08-12 04:21] LABS: Troponin 5 2HR Delta 1.67 ABS# (0-10)
[2022-08-12 04:51] VITALS: BP 162/88; PULSE 79; RESP 18; O2SAT 96
== END 2022-08-12 04:57 | disposition home or self-care (01) ==
PROVIDERS: Physician Assistant; Emergency Provider Emergency Medicine; PCP Nurse Practitioner Family
DX: I16.0 Hypertensive urgency (principal); E11.9 Type 2 diabetes mellitus without complications; Z79.84 Long term (current) use of oral hypoglycemic drugs; I10 Essential (primary) hypertension
CPT/HCPCS: 70450; 71045; 80053; 83880; 84484; 85025; 93005; 96374; 96375; 96376; 99285; J0360; J1885; J2270; J2405; J3490

== ENCOUNTER 2022-08-16 09:03 | Emergency (ER) | payer MEDICARE, MEDICAID, SELFPAY ==
[2022-08-16] VITALS (9 sets, daily range): BP systolic 172–188; BP diastolic 84–119; PULSE 81–105; RESP 16–18; TEMP 37.1; O2SAT 95–99; BMI 22.8
--- NOTE | 2022-08-16 09:11 | CT_ITS ---
WS: [id number] CT HEAD NONCONTRAST HISTORY: AMS TECHNIQUE: Contiguous axial imaging performed through the brain in 2.5 mm imaging. Bone and soft tiss ue windows. Sagittal and coronal reformats reviewed. All CT scans at [facility] use at least one of these dose optimization techniques: automated exposure control; mA and/or kV adjustment per pa tient size (includes targeted exams where dose is matched to clinical indication); or iterative recon struction. DLP: 1183.58 mGy.cm COMPARISON: 08/12/2022, 12/07/2021 No acute intracranial hemorrhage, midline shift or mass effect. Marked atrophy is noted. Moderate small vessel ischemic disease. Ventricles: Moderate ventricular dilatation. Extra-axial spaces are also prominent. Similar to multi ple prior examinations. Third ventricle is prominent. No inferior displacement of cerebellar tonsils. Paranasal sinuses: As visualized are clear. Mastoid air cells: Well pneumatized. Calvarium and scalp: Skull is intact with no soft tissue edema or swelling. CT/CT head wo con* [id number] IMPRESSION: 1. No acute intracranial hemorrhage or edema. 2. Stable noncontrast head CT since 12/07/2021. 3. Moderate small vessel ischemic disease and atrophy. 4. Ventriculomegaly. May be on the basis of normal pressure hydrocephalus or t he diffuse atrophy.
--- NOTE | 2022-08-16 09:11 | XRR_ITS ---
PROCEDURE INFORMATION: Exam: XR Chest Exam date and time: 08/16/2022 9:14 AM Age: 76 years old Clinical indication: Cough and dyspnea; Additional info: Dyspnea/cough TECHNIQUE: Imaging protocol: Radiologic exam of the chest. Views: 1 view. COMPARISON: CR (CHEST, ) 08/12/2022 2:25 AM FINDINGS: Lungs: Left basilar consolidation may be consistent with atelectasis, similar to prior exam. Pleural spaces: No pneumothorax. No pleural effusion. Heart/Mediastinum: The heart is mildly enlarged for size, similar to prior exam. Bones/joints: Chronic irregularity of the bilateral humeri. XR/XR chest 1V portable [id number] IMPRESSION: No significant change from prior exam.
--- NOTE | 2022-08-16 09:11 | ECG_ITS ---
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 Measurements Intervals [place] Rate: 96 P: 21 GA: 162 QRS: -34 QRSD: 126 T: -22 QT: 370 QTc: 468 Interpretive Statements SINUS RHYTHM WITH SINUS ARRHYTHMIA POSSIBLE LEFT ATRIAL ENLARGEMENT [-0.1mV P-WAVE IN V1/V2] LEFT AXIS DEVIATION [QRS AXIS < -30] RIGHT BUNDLE BRANCH BLOCK [120+ ms QRS DURATION, UPRIGHT V1, 40+ ms S IN I/aVL/V4/V5/V6] POSSIBLE ANTERIOR MYOCARDIAL INFARCTION , OF INDETERMINATE AGE [30 ms Q WAVE IN V3/V4, OR R < 0.2 mV IN V4] Compared to ECG 08/12/2022 04:21:35 Left-axis deviation now present Myocardial infarct finding now present Electronically Signed On 08-16-2022 17:48:07 CDT by Flakito Corea M.D. [id number]
--- NOTE | 2022-08-16 09:28 | ED_ITS ---
HPI - Altered Mental Status General: Chief Complaint: Altered Mental Status Stated Complaint: SHOULDER PAIN/ FEVER Time Seen by Provider: 08/16/22 09:05 [facility] ED PFS: Medical History (Updated 08/12/22 @ 04:29 by Harvey Reyna DO) Acid reflux Diabetes mellitus Gout Surgical History History of appendectomy History of back surgery History of right knee surgery History of shoulder surgery History of surgery on wrist Family History Other Cancer Diabetes Social History Smoking and tobacco status: never smoked Alcohol intake: former Household members: none Current occupational status: disabled Course Vital Signs: Vital signs: Vital Signs Temperature 98.8 F 08/16/22 09:05 Pulse Rate 105 H 08/16/22 09:05 Respiratory Rate 16 08/16/22 09:05 Pulse Oximetry 96 08/16/22 09:05 Oxygen Delivery Me thod Room Air 08/16/22 09:05 Discharge Plan Discharge Condition: Stable Prescriptions: No Action omeprazole 20 mg capsule,delayed release(DR/EC) PO prednisolone acetate 1 % drops,suspension 1 drop ophthalmic (eye) ibuprofen 800 mg tablet PO omega-3 acid ethyl esters 1 gram capsule PO gabapentin 300 mg capsule PO ranitidine HCl 300 mg tablet 300 mg PO docusate sodium 100 mg capsule PO cyanocobalamin (vitamin B-12) 1,000 mcg/mL solution 100 mcg IM furosemide 20 mg tablet PO buspirone 30 mg tablet PO acetaminophen-codeine 300-30 mg tablet PO allopurinol 300 mg tablet PO metformin 500 mg tablet PO gabapentin 600 mg tablet 300 mg PO aspirin 81 mg tablet,delayed release (DR/EC) PO spironolactone 25 mg tablet PO famotidine 20 mg tablet 20 mg PO tamsulosin 0.4 mg capsule PO atenolol 50 mg tablet PO loratadine 10 mg tablet PO albuterol sulfate 90 mcg/actuation HFA aerosol inhaler INHALATION doxycycline hyclate 100 mg capsule 100 mg PO BID Qty: 14 0RF mupirocin 2 % ointment 1 applic TOPICAL BID Qty: 30 0RF ondansetron HCl [Zofran] 8 mg tablet 8 mg PO Q8H PRN (Reason: nausea and vomiting) Qty: 30 0RF Reglan 5 mg tablet 5 mg PO DAILY Qty: 10 0RF amlodipine 10 mg tablet 10 mg PO DAILY Qty: 30 0RF Referrals: Kaur,ELDA Farias [Primary Care Provider] - Patient Instructions: Altered Mental Status (ED), Alcohol Intoxication (ED), Benzodiazepine Use Disorder (ED), Concussion (ED), Dementia (ED), Subarachnoid Hemorrhage (GEN), Hyponatremia (ED), Non-diabetic Hypoglycemia (ED), Hypoglycemia in a Person with Diabetes (ED) Coding Level of Care Code ED Supply Chain Generalist for Bernadette Gamez
--- NOTE | 2022-08-16 09:35 | W.ED.GENADLT ---
HPI - General Adult General: Chief complaint: Altered Mental Status Stated complaint: SHOULDER PAIN/ FEVER Time Seen by Provider: 08/16/22 09:05 Source: patient Mode of arrival: ambulatory History of Present Illness: 76-year-old male presents to the emergency room with complaints of confusion and altered mental status. Caregiver reports having been at his house yesterday and he was having some confusion at times evidently having visual hallucinations complaining of chronic back pain. When I seen discussed with the patient he states he cannot get things organized he does mention he has some difficulty with bowels but this been a longstanding issue. He denies any specific complaints no chest pain difficulty breathing no abdominal pain no hematochezia melena hematemesis cough cramps no dysuria urgency or frequency or hematuria. When he was initially seen there is no family at the bedside or other caregivers to provide other outside history. Onset (ago): hour(s) Severity: moderate Associated symptoms: Deny chest pain, confusion, cough, diaphoresis, decreased appetite, dyspnea, fevers/chills, headache(s), malaise, nausea, rash, palpitations, seizures, short of breath, syncope, vomiting or weakness Review of Systems Const: Reports: fatigue; Denies: fever(s), chills, malaise or diaphoresis ENMT: Denies: throat pain, ear or mastoid pain, nasal discharge or nasal congestion Card: Denies: chest pain, palpitations, irregular heart rhythm, edema, swelling of feet/ankles or syncope Resp: Denies: dyspnea, productive cough or non-productive cough GI: Denies: abdominal pain, nausea or vomiting : Denies: flank pain, dysuria, urinary frequency or urinary urgency Musc: Denies: neck pain or back pain Skin/Breast: Denies: rash Neuro: Denies: headache(s) or confusion PFSH ED PFSH: Medical History (Updated 08/16/22 @ 13:24 by Alverto Yu DO) Acid reflux Diabetes mellitus Gout Surgical History History of appendectomy History of back surgery History of right knee surgery History of shoulder surgery History of surgery on wrist Family History Other Cancer Diabetes Social History Smoking and tobacco status: never smoked Alcohol intake: former Household members: none Current occupational status: disabled Physical Exam Const: GENERAL APPEARANCE: cooperative and comfortable ORIENTATION/CONSCIOUSNESS: Yes awake, Yes oriented to person and Yes oriented to place HENMT: COMMON NORMALS: normocephalic, atraumatic and hearing grossly normal bilaterally HEAD & SCALP: normocephalic and atraumatic Resp: COMMON NORMALS: normal respiratory effort, No retractions, No use of accessory muscles and clear to auscultation bilaterally AUSCULTATION: clear to auscultation bilaterally Cardio: COMMON NORMALS: regular rate, regular rhythm and No murmurs present (Cardio) RATE: regular rate RHYTHM: regular rhythm GI: COMMON NORMALS: Soft to palpation and No hepatosplenomegaly present AUSCULTATION: Yes normoactive bowel sounds PALPATION: Yes Soft to palpation, No Tenderness to palpation present (GI), No Guarding due to palpation present (GI) and Yes No hepatosplenomegaly present Extremity: COMMON NORMALS: normal to inspection, capillary refill normal, no clubbing, cyanosis or edema, no calf tenderness and no pedal edema Neuro: SENSORIUM/ORIENTATION: Yes oriented to person and Yes oriented to place Skin: COMMON NORMALS: no rashes or lesions noted GENERAL SKIN EXAM: no rashes or lesions noted Course Vital Signs: Vital signs: Vital Signs Temperature 98.8 F 08/16/22 09:05 Pulse Rate 81 08/16/22 13:45 Respiratory Rate 18 08/16/22 13:45 Blood Pressure 188/84 08/16/22 13:45 Pulse Oximetry 99 08/16/22 13:45 Oxygen Delivery Me thod Room Air 08/16/22 09:09 MDM - General Adult Medical Decision Making Patient awake and alert is ambulating in the halls. Laboratory studies reviewed no acute findings admit his blood pressure is elevated he tells me he is needs he has blood pressure medicines refilled. He would like to go home we will try to get a hold of other family members see if there is more history none was forthcoming with could not contact anyone. No emergent process in place on this patient at this time we will discharge him home he can return at any time should follow-up with primary care doctor within the week to reevaluate blood pressure. Medical Records I reviewed the patient's medical records. Lab Data I reviewed the patient's lab results. 08/16/22 09:50 Radiology Impressions Chest X-Ray 08/16/22 09:11 IMPRESSION: No significant change from prior exam. Head CT 08/16/22 09:11 IMPRESSION: 1. No acute intracranial hemorrhage or edema. 2. Stable noncontrast head CT since 12/07/2021. 3. Moderate small vessel ischemic disease and atrophy. 4. Ventriculomegaly. May be on the basis of normal pressure hydrocephalus or the diffuse atrophy. Laboratory Results WBC 6.9 10^3/uL (4.0-10.0) 08/16/22 09:50 RBC 5.84 10^6/uL (4.1-5.3) H 08/16/22 09:50 Hgb 15.8 g/dL (11.7-16.6) 08/16/22 09:50 Hct 47.4 % (42.0-52.0) 08/16/22 09:50 MCV 81.2 fl (80-94) 08/16/22 09:50 MCH 27.1 pg (28.0-34.0) L 08/16/22 09:50 MCHC 33.3 g/dL (30.0-36.0) 08/16/22 09:50 RDW 13.6 % (12.1-15.1) 08/16/22 09:50 Plt Count 161 10^3/cmm (130-400) 08/16/22 09:50 MPV 10.7 fL (7.4-10.4) H 08/16/22 09:50 Neut % (Auto) 54.9 % 08/16/22 09:50 Lymph % (Auto) 33.1 % 08/16/22 09:50 [place] % (Auto) 10.5 % 08/16/22 09:50 Eos % (Auto) 1.0 % 08/16/22 09:50 Baso % (Auto) 0.1 % 08/16/22 09:50 Neut # (Auto) 3.79 10^3/uL (1.8-7.7) 08/16/22 09:50 Lymph # (Auto) 2.3 10^3/uL (0.8-4.8) 08/16/22 09:50 [place] # (Auto) 0.7 10^3/uL (0.2-0.9) 08/16/22 09:50 Eos # (Auto) 0.1 10^3/uL (0.0-0.8) 08/16/22 09:50 Baso # (Auto) 0.0 10^3/uL (0.0-0.1) 08/16/22 09:50 Nucleated RBC % (auto) 0 % 08/16/22 09:50 Nucleated RBCs # 0.0 /100WBC 08/16/22 09:50 Magnesium 1.3 mg/dL (1.7-2.3) L 08/16/22 09:50 Troponin T Baseline 19 ng/L (0-15) H 08/16/22 09:50 Troponin T 120 Minute 16.43 ng/L (0-15) H 08/16/22 11:27 Delta Troponin T -2.57 ABS# (0-10) L 08/16/22 11:27 Lipase 122 U/L (13-60) H 08/16/22 09:50 Urine Color Yellow (Yellow) 08/16/22 09:45 Urine Appearance Clear (CLEAR) 08/16/22 09:45 Urine pH 6.5 (5-7) 08/16/22 09:45 Ur Specific [place] 1.015 (1.005-1.030) 08/16/22 09:45 Urine Protein Neg (Negative) 08/16/22 09:45 Urine Glucose (UA) Norm (Normal) 08/16/22 09:45 Urine Ketones Negative (Negative) 08/16/22 09:45 Urine Blood 2+ (Negative) H 08/16/22 09:45 Urine Nitrate Negative (Negative) 08/16/22 09:45 Urine Bilirubin Neg (Negative) 08/16/22 09:45 Urine Urobilinogen Norm mg/dL (Negative) 08/16/22 09:45 Ur Leukocyte Esterase Negative (Negative) 08/16/22 09:45 Urine RBC 0-4 /hpf (0-2) H 08/16/22 09:45 Urine WBC Rare /hpf (0-5) 08/16/22 09:45 Ur Squamous Epith Cells None /hpf (0-5) 08/16/22 09:45 Amorphous Sediment Not Reportable 08/16/22 09:45 Urine Bacteria None /hpf (NONE) 08/16/22 09:45 Discharge Plan Discharge Patient Disposition: Home Clinical Impression: Hypertension Condition: Stable Prescriptions: No Action omeprazole 20 mg capsule,delayed release(DR/EC) PO prednisolone acetate 1 % drops,suspension 1 drop ophthalmic (eye) ibuprofen 800 mg tablet PO omega-3 acid ethyl esters 1 gram capsule PO gabapentin 300 mg capsule PO ranitidine HCl 300 mg tablet 300 mg PO docusate sodium 100 mg capsule PO cyanocobalamin (vitamin B-12) 1,000 mcg/mL solution 100 mcg IM furosemide 20 mg tablet PO buspirone 30 mg tablet PO acetaminophen-codeine 300-30 mg tablet PO allopurinol 300 mg tablet PO metformin 500 mg tablet PO gabapentin 600 mg tablet 300 mg PO aspirin 81 mg tablet,delayed release (DR/EC) PO spironolactone 25 mg tablet PO famotidine 20 mg tablet 20 mg PO tamsulosin 0.4 mg capsule PO atenolol 50 mg tablet PO loratadine 10 mg tablet PO albuterol sulfate 90 mcg/actuation HFA aerosol inhaler INHALATION doxycycline hyclate 100 mg capsule 100 mg PO BID Qty: 14 0RF mupirocin 2 % ointment 1 applic TOPICAL BID Qty: 30 0RF ondansetron HCl [Zofran] 8 mg tablet 8 mg PO Q8H PRN (Reason: nausea and vomiting) Qty: 30 0RF Reglan 5 mg tablet 5 mg PO DAILY Qty: 10 0RF amlodipine 10 mg tablet 10 mg PO DAILY Qty: 30 0RF Discharge Orders: Discharge ED (Routine); Ordered 08/16/22 Ordered By: Alverto Yu Referrals: Dinora Kaur APN [Primary Care Provider] - Patient Instructions: Alcohol Intoxication (ED), Altered Mental Status (ED) Activity Restrictions/Additional Instructions: You were seen today for some confusion. Your symptoms have improved your evaluation in the emergency room did not show any acute process. Your blood pressure was elevated responded well to medications given. We encourage you to get get your medications for your blood pressure filled and continue to take them regularly recheck your blood pressure primary care doctor within the next week. Coding Level of Care Code ED Dedicated Owner Operator for Bernadette Gamez
[2022-08-16 10:09] LABS: Basophils % 0.1 %; Eosinophils # 0.1 10^3/uL (0.0-0.8); Hematocrit 47.4 % (42.0-52.0); Hemoglobin 15.8 g/dL (11.7-16.6); Lymphocytes # 2.3 10^3/uL (0.8-4.8); Lymphocytes % 33.1 %; Mean Corpuscular HGB Conc 33.3 g/dL (30.0-36.0); Mean Corpuscular Hemoglobin 27.1 pg (28.0-34.0); Mean Corpuscular Volume 81.2 fl (80-94); Mean Platelet Volume 10.7 fL (7.4-10.4); Monocytes # 0.7 10^3/uL (0.2-0.9); Monocytes % 10.5 %; Neutrophils # 3.79 10^3/uL (1.8-7.7); Neutrophils % 54.9 %; Nucleated Red Blood Cells % 0 %; Platelet Count 161 10^3/cmm (130-400); Red Blood Count 5.84 10^6/uL (4.1-5.3); Red Cell Distribution Width 13.6 % (12.1-15.1); White Blood Count 6.9 10^3/uL (4.0-10.0)
[2022-08-16 10:25] LABS: Add Urine Microscopic? YES; Bilirubin Urine Neg (Negative); Blood Urine 2+ (Negative); Glucose Urine UA Norm (Normal); Ketones Urine Negative (Negative); Leukocyte Esterase Urine Negative (Negative); Nitrate Urine Negative (Negative); Protein Urine Neg (Negative); Specific Gravity, Urine 1.015 (1.005-1.030); Urine Appearance Clear (CLEAR); Urine Color Yellow (Yellow); Urobilinogen Urine Norm (Negative); pH Urine 6.5 (5-7)
[2022-08-16 10:28] LABS: RBC Urine 0-4 /hpf (0-2); WBC Urine RARE /hpf (0-5)
[2022-08-16 10:38] LABS: Troponin(5th) Baseline 19 ng/L (0-15)
[2022-08-16 10:39] LABS: Lipase 122 U/L (13-60); Magnesium 1.3 mg/dL (1.7-2.3)
--- NOTE | 2022-08-16 11:08 | ECG_ITS ---
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 Measurements Intervals [place] Rate: 101 P: 108 [place]: 166 QRS: 146 QRSD: 118 T: -25 QT: 350 QTc: 455 Interpretive Statements SINUS TACHYCARDIA WITH OCCASIONAL SUPRAVENTRICULAR PREMATURE COMPLEXES INDETERMINATE AXIS INCOMPLETE RIGHT BUNDLE BRANCH BLOCK [90+ ms QRS DURATION, TERMINAL R IN V1/V2, 40+ ms S IN I/aVL/V4/V5/V6] POSSIBLE RIGHT VENTRICULAR HYPERTROPHY [SOME/ALL OF: PROMINENT R IN V1, LATE TRANSITION, RAD, FELICITA, SSS] POSSIBLE LATERAL MYOCARDIAL INFARCTION , OF INDETERMINATE AGE [30 ms Q WAVE IN I/aVL/V5/V6] MODERATE T-WAVE ABNORMALITY, CONSIDER ANTERIOR ISCHEMIA [-0.1+ mV T-WAVE IN V3/V4] Compared to ECG 08/16/2022 09:35:23 Indeterminate axis now present Incomplete right bundle-branch block now present T-wave abnormality now present Left-axis deviation no longer present Myocardial infarct finding still present Electronically Signed On 08-16-2022 17:58:31 CDT by Flakito Corea M.D. [id number]
[2022-08-16] MEDS: labetalol 5 mg/mL SDV 20mL 10 MG IVP (11:28)
[2022-08-16] MEDS: metoprolol succinate ER (24 HR) 50 mg Tablet PO (11:29)
[2022-08-16 12:04] LABS: Troponin 5 2HR 16.43 ng/L (0-15)
[2022-08-16 12:06] LABS: Troponin 5 2HR Delta -2.57 ABS# (0-10)
--- NOTE | 2022-08-16 12:48 | PC.NURSE ---
Pt is able to answer questions appropriately - the year, the president, day of the week, place. However, he is not able to answer about why he was sent here by his caregiver - he is very vague and has to be redirected to keep monitors on and stay in his bed. Dr. Yu aware
--- NOTE | 2022-08-16 13:46 | PC.NURSE ---
PHYSICIAN VERBALIZED OK FOR PATIENT SIT IN WAITING ROOM TO WAIT FOR MEDICAID TRANSPORTATION HOME. PATIENT INSTRUCTED TO SIT IN WAITING AREA AND ASK REGISTRATION IF ANY NEEDS ARISE. PATIENT VERBALIZED UNDERSTANDING.
== END 2022-08-16 13:46 | disposition home or self-care (01) ==
PROVIDERS: Emergency Provider Family Medicine; PCP Nurse Practitioner Family
DX: I10 Essential (primary) hypertension (principal)
CPT/HCPCS: 36415; 70450; 71045; 81001; 83690; 83735; 84484; 85025; 93005; 96374; 99284; J3490

== ENCOUNTER 2023-10-17 05:47 | Emergency (ER) | payer MEDICARE, MEDICAID, SELFPAY ==
[2023-10-17 05:51] VITALS: BP 195/80; PULSE 61; RESP 18; TEMP 36.6; O2SAT 95; BMI 22.8
[2023-10-17] MEDS: ketorolac 30 mg/mL INJ 15 MG IVP (06:12)
[2023-10-17] MEDS: metoclopramide 5 mg/mL SDV 2 mL 10 MG IVP (06:14)
[2023-10-17] MEDS: valproic acid inj 500 MG in sodium chloride 0.9% 50 ML 55 MG IV (06:15)
--- NOTE | 2023-10-17 06:18 | W.ED.HA ---
HPI - Headache General: Chief Complaint: Headache Stated Complaint: headache Time Seen by Provider: 10/17/23 05:52 Source: patient Mode of arrival: EMS History of Present Illness: 77-year-old male who presents to the emergency room with complaints of a headache. He has pain on the left side of the head the upper portion of the neck radiating up into the occiput. Does not affect his vision or balance states he typically does have migraines frequently this feels a little different about the location his overuse is more often is near the crown of his head on the left side. He did take a Tylenol 3 at home. He has not had any change in vision he has not had any vomiting or diarrhea or nauseousness. No photophobia or photophobia MD elicited complaint: migraine Onset description: gradually Location: left and occipital Severity: moderate Quality & Timing: throbbing Exacerbating factors: none Relieving factors: nothing Associated symptoms: Deny chest pain, confusion, cough, diaphoresis, eye pain, eye redness, fever(s), lightheadedness, loss of vision, malaise, nausea, neck stiffness, numbness, paresthesias, photophobia, pre-syncope, rash, seizures, short of breath, sound sensitivity, syncope, vomiting or weakness Review of Systems Const: Denies: fever(s), chills, malaise or diaphoresis Card: Denies: chest pain, lightheadedness, syncope or pre-syncope Resp: Denies: dyspnea GI: Denies: abdominal pain, nausea or vomiting : Denies: dysuria, urinary frequency or urinary urgency Musc: Denies: neck pain or back pain Skin/Breast: Denies: rash Neuro: Reports: headache(s); Denies: confusion PFSH ED PFSH: Medical History (Updated 10/17/23 @ 08:43 by Alverto Yu DO) Diabetes mellitus Acid reflux Gout Surgical History History of right knee surgery History of surgery on wrist History of back surgery History of shoulder surgery History of appendectomy Family History Other Cancer Diabetes Social History Smoking and tobacco/nicotine status: never used tobacco/nicotine Alcohol intake: former Household members: none Current occupational status: disabled Physical Exam Const: COMMON NORMALS: no acute distress GENERAL APPEARANCE: cooperative and comfortable ORIENTATION/CONSCIOUSNESS: Yes awake, Yes oriented to person, Yes oriented to place and Yes oriented to time HENMT: COMMON NORMALS: normocephalic, atraumatic and hearing grossly normal bilaterally HEAD & SCALP: normocephalic and atraumatic Eye: DIRECT OPHTHALMOSCOPY: No photophobia Resp: COMMON NORMALS: normal respiratory effort, No retractions, No use of accessory muscles and clear to auscultation bilaterally AUSCULTATION: clear to auscultation bilaterally Cardio: COMMON NORMALS: regular rate, regular rhythm and No murmurs present (Cardio) RATE: regular rate RHYTHM: regular rhythm GI: COMMON NORMALS: Soft to palpation and No hepatosplenomegaly present AUSCULTATION: Yes normoactive bowel sounds PALPATION: Yes Soft to palpation, No Tenderness to palpation present (GI), No Guarding due to palpation present (GI) and Yes No hepatosplenomegaly present Extremity: COMMON NORMALS: normal to inspection, capillary refill normal, no clubbing, cyanosis or edema, no calf tenderness and no pedal edema Neuro: SENSORIUM/ORIENTATION: Yes oriented to person, Yes oriented to place and Yes oriented to time Skin: COMMON NORMALS: no rashes or lesions noted GENERAL SKIN EXAM: no rashes or lesions noted Course Vital Signs: Vital signs: Vital Signs Temperature 97.9 F 10/17/23 05:51 Pulse Rate 52 L 10/17/23 09:11 Respiratory Rate 18 10/17/23 07:00 Blood Pressure 175/89 10/17/23 09:11 Pulse Oximetry 94 10/17/23 09:11 Oxygen Delivery Me thod Room Air 10/17/23 07:00 MDM - Headache Medical Decision Making Patient has had a history of migraines has a recurrent migraine he is feeling much better today after the medications. Imaging reviewed will discharge patient home continue same medications follow-up with primary care as needed Differential Diagnosis Likely migraine Medical Records I reviewed the patient's medical records. Lab Data I reviewed the patient's lab results. All radiology interpretation(s) finalized by discharge Discharge Plan Discharge Patient Disposition: Home Clinical Impression: Migraine Condition: Stable Prescriptions: No Action metformin 500 mg tablet 500 mg PO BID spironolactone 25 mg tablet 25 mg PO DAILY PRN (Reason: Edema) tamsulosin 0.4 mg capsule 0.4 mg PO QPM atenolol 50 mg tablet 50 mg PO DAILY buspirone 15 mg tablet 7.5 mg PO BID PRN (Reason: Anxiety) rizatriptan 10 mg tablet,disintegrating 10 mg PO DAILY PRN (Reason: Migraine Headache) pantoprazole 40 mg tablet,delayed release (DR/EC) 40 mg PO BID montelukast 10 mg tablet 10 mg PO DAILY lisinopril 5 mg tablet 5 mg PO BID Trintellix 20 mg tablet 20 mg PO DAILY Discharge Orders: Discharge ED (Routine); Ordered 10/17/23 Ordered By: Alverto Yu Referrals: Dinora Kaur APN [Primary Care Provider] - Discharge Diet: Usual diet Discharge Activity: Resume usual activity Patient Instructions: Migraine Headache (ED), Opioid Safety, Pain Management Activity Restrictions/Additional Instructions: Thank you for choosing [facility] for your healthcare needs today. It is very important that you follow up as instructed or that you return to the Emergency Department should you have concerns or if your condition changes or worsens in any way. Coding Level of Care Code ED Application Specialist for Bernadette Gamez
[2023-10-17 06:45] VITALS: BP 146/76
[2023-10-17 07:00] VITALS: BP 146/76; PULSE 65; RESP 18; O2SAT 95
[2023-10-17 08:00] VITALS: BP 159/91; PULSE 62; O2SAT 93
--- NOTE | 2023-10-17 08:34 | PC.PHAR ---
PT HAD A LONG LIST OF MEDICATIONS MORE THAN 4 YEARS OLD THAT WERE REMOVED FROM CHART. PT HAS CURRENT MEDICATION LIST ENTERED TODAY. 10/17/23
[2023-10-17 09:11] VITALS: BP 175/89; PULSE 52; O2SAT 94
== END 2023-10-17 09:12 | disposition home or self-care (01) ==
PROVIDERS: Emergency Provider Family Medicine; PCP Nurse Practitioner Family
DX: G43.909 Migraine, unspecified, not intractable, without status migrainosus (principal)
CPT/HCPCS: 96374; 96375; 99284; J1885; J2765; J3490